=== PATIENT | female | born 1975 | race Caucasian/White ===

== ENCOUNTER → 2020-03-06 17:56 | Outpatient (CLI) | payer MEDICARE, MEDICAID, SELFPAY ==
--- NOTE | ~2020-03-06 | MM_ITS ---
EXAMINATION: MM screening helio BI w ivy HISTORY: Screening mammogram TECHNIQUE: Craniocaudal and mediolateral oblique 3-D tomosynthesis images were obtained and synthetic 2-D images were generated. CAD analysis was submitted and interpreted. COMPARISON: No prior mammogram is available for comparison at this institution. BREAST PARENCHYMAL COMPOSITION: There are scattered areas of fibroglandular density. FINDINGS: There is a 7 mm circumscribed mass in the upper central right breast (4 cm deep to the nipp le. Diagnostic right mammogram and right breast ultrasound examination are recommended. There is no e vidence of suspicious mass, calcification, or architectural distortion to suggest malignancy in eithe r breast. There has been no suspicious interval change. IMPRESSION: 1. 7 mm mass in upper central right breast 2. Diagnostic right mammogram and right breast ultrasound examination are recommended. BI-RADS Category 0: Incomplete: Needs additional imaging evaluation. Reviewed, dictated and finalized at location A. IMPRESSION: 1. 7 mm mass in upper central right breast 2. Diagnostic right mammogram and right breast ultrasound examination are recom mended. BI-RADS Category 0: Incomplete: Needs additional imaging evaluation.
== END ==
PROVIDERS: PCP Internal Medicine; Visit Provider Internal Medicine
DX: Z12.31 Encounter for screening mammogram for malignant neoplasm of breast (principal); N63.12 Unspecified lump in the right breast, upper inner quadrant
CPT/HCPCS: 77063; 77067

== ENCOUNTER → 2020-04-09 08:13 | Outpatient (CLI) | payer MEDICARE, MEDICAID, SELFPAY ==
--- NOTE | ~2020-04-09 | MMUS_ITS ---
EXAMINATION: MM diagnostic helio RT w ivy, US breast RT limited HISTORY: Possible right breast mass on screening mammogram TECHNIQUE: Additional 3-D tomosynthesis images of the right breast were performed and synthetic 2-D i mages were generated. CAD analysis was submitted and interpreted. High resolution limited right breas t ultrasound was performed. COMPARISON: 03/06/2020, 11/21/2017 FINDINGS: MAMMOGRAPHIC FINDINGS: There is an approximately 7 mm oval, equal density, obscured mass in the middle third of the central, slightly upper breast at the 12:00 location 3.5 cm from the nipple. No associated calcification or a rchitectural distortion are identified. ULTRASOUND: There is an 8 mm x 5 mm oval, hypoechoic, parallel mass with slightly indistinct margins at the 12:00 location 3 cm from the nipple. No definite internal vascularity or posterior features are identified . IMPRESSION: 1. Suspicious right breast mass. 2. Ultrasound-guided biopsy is recommended. BI-RADS category 4, suspicious findings. Reviewed, dictated and finalized at location A. 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 Suspicious right breast mass. 2. Ultrasound-guided biopsy is recommended. BI-RADS category 4, suspicious findings.
== END ==
PROVIDERS: PCP Internal Medicine; Visit Provider Internal Medicine
DX: R92.8 Other abnormal and inconclusive findings on diagnostic imaging of breast (principal)
CPT/HCPCS: 76642; 77061; 77065; G0279

== ENCOUNTER 2020-07-03 09:28 | Outpatient (CLI) | payer MEDICARE, MEDICAID, SELFPAY ==
--- NOTE | ~2020-07-03 | MMUS_ITS ---
EXAMINATION: US breast biopsy RT w image, MM post biopsy invasive RT DATE: 07/03/2020 11:04 INDICATION: Indeterminate right breast mass. Ultrasound-guided core biopsy is requested to evaluate for malignancy. TECHNIQUE AND FINDINGS: The risks and potential benefits of the procedure were discussed with the patient including bleeding and infection. Patient identity was confirmed with her wristband. The skin of the right breast was pr epared and draped in usual sterile fashion. 1% lidocaine was used for superficial anesthesia. 1% lido tommie with epinephrine was used for deep anesthesia. A vacuum-assisted biopsy gun needle was advanced through to the outer edge of the region of interest from a lateral approach utilizing sonographic guidance. A total of three tissue core samples were obt ained through the lesion. A tissue marker clip was then placed at the biopsy site. Hemostasis was ach ieved. A sterile bandage was applied. The patient tolerated procedure well and there was no evidence of immediate complication. The patient was given verbal instructions to return to the Emergency Department in the event of severe breast pa in or rapid breast enlargement. A two view right breast mammogram was obtained to document tissue mar ker clip placement. IMPRESSION: 1. Successful ultrasound-guided vacuum-assisted biopsy of right breast mass with tissue marker placem ent. Reviewed, dictated and finalized at location A. 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 Successful ultrasound-guided vacuum-assisted biopsy of right breast mass wit h tissue marker placement.
== END 2020-07-03 09:29 | disposition home or self-care (01) ==
PROVIDERS: Family Provider Internal Medicine; PCP Internal Medicine; Visit Provider Internal Medicine
DX: R92.8 Other abnormal and inconclusive findings on diagnostic imaging of breast (principal); D49.3 Neoplasm of unspecified behavior of breast
CPT/HCPCS: 19083; 88305

== ENCOUNTER 2021-09-14 12:46 | Outpatient (CLI) | payer OTHER, SELFPAY ==
--- NOTE | ~2021-09-14 | MR_ITS ---
EXAMINATION: MR lumbar spine wo con DATE: 09/14/2021 13:32 INDICATION: Low back pain. TECHNIQUE: Magnetic resonance imaging (MRI) of the lumbar spine was performed without intravenous con trast. Sequences included sagittal T2-weighted FSE, sagittal T2-weighted FS FSE, sagittal T1-weighted FSE, and axial T2-weighted FSE. COMPARISON: Lumbar spine MRI 07/02/2007 FINDINGS: There is 4 degrees dextrocurvature of lumbar spine. Vertebral body heights are normal. Ther e is moderately decreased disc height at L5-S1 with endplate remodeling. The distal spinal cord signa l intensity is normal. The conus medullaris is at L1-L2. The following disc levels are specifically d iscussed: L1-L2: The disc does not extend beyond the endplate margin. There is mild bilateral facet joint osteo arthritis. There is no neural foraminal stenosis. There is no central canal stenosis. L2-L3: The disc does not extend beyond the endplate margin. There is moderate bilateral facet joint o steoarthritis. There is no neural foraminal stenosis. There is no central canal stenosis. L3-L4: The disc does not extend beyond the endplate margin. There is moderate bilateral facet joint o steoarthritis. There is no neural foraminal stenosis. There is no central canal stenosis. L4-L5: The disc does not extend beyond the endplate margin. There is severe bilateral facet joint ost eoarthritis. There is mild left neural foraminal stenosis. There is no central canal stenosis. L5-S1: The disc is bulging and has an annular fissure. There is moderate bilateral facet joint osteoa rthritis. There is mild bilateral neural foraminal stenosis. There is mild central canal stenosis. IMPRESSION: 1. Moderate lower lumbar spondylosis, mildly worsened from 07/02/2007. Reviewed, dictated and finalized at location B.
== END 2021-09-14 12:47 | disposition home or self-care (01) ==
PROVIDERS: PCP Internal Medicine; Visit Provider Internal Medicine
DX: M47.817 Spondylosis without myelopathy or radiculopathy, lumbosacral region (principal); M48.07 Spinal stenosis, lumbosacral region
CPT/HCPCS: 72148

== ENCOUNTER 2021-10-12 23:52 | Emergency (ER) | payer OTHER, SELFPAY ==
--- NOTE | 2021-10-13 00:38 | PC.NURSE ---
RN attempted to pull pt back for triage but pt stated I am not going to sit here all night in pain. RN removed IV to L AC and pt ambulated out of the ER with daughter.
== END 2021-10-13 00:59 | disposition left against medical advice (07) ==
PROVIDERS: PCP Internal Medicine
DX: Z53.21 Procedure and treatment not carried out due to patient leaving prior to being seen by health care provider (principal)
CPT/HCPCS: 99199

== ENCOUNTER 2022-07-26 09:19 | Outpatient (CLI) | payer OTHER, SELFPAY ==
--- NOTE | 2022-07-26 10:45 | NEURO_ITS ---
Impression: Patient reports history of tingling in right lower extremity. # Normal nerve conduction study. # Needle/EMG exam not requested. # Clinical correlation recommended. Motor Nerve Conduction Lower Extremities Peroneal Nerve Conduction Velocity (m/sec) Terminal Latency (msec) Response Voltage(mV) Popliteal space-Ankle Ankle Extensor Dig Brevis Popliteal space Ankle Right 49-50 3.8 3-3 3 Left Tibial Nerve Conduction Velocity (m/sec) Terminal Latency (msec) Response Voltage(mV) Popliteal space-Ankle Ankle-Extensor Dig Brevis Popliteal space Ankle Right 50 4.1 5 8 Left F-waves Peroneal Nerve (ms) Tibial Nerve (ms) Right 47.6 46.7 Left Sensory Nerve Conduction Lower Extremities Sural Nerve Stimulation Terminal Latency (msec) Ankle Response Voltage (uV) Ankle Response Velocity (m/sec) Right 3.1 13 52 Left Superficial Peroneal Nerve Stimulation Terminal Latency (msec) Ankle Response Voltage (uV) Ankle Response Velocity (m/sec) Right 3.3 12 48 Left MTDD
== END 2022-07-26 09:20 | disposition home or self-care (01) ==
PROVIDERS: PCP Internal Medicine; Visit Provider Internal Medicine
DX: R20.2 Paresthesia of skin (principal)
CPT/HCPCS: 95908

== ENCOUNTER 2022-11-16 13:13 | Outpatient (CLI) | payer OTHER, SELFPAY ==
--- NOTE | 2022-11-16 13:26 | ECG_ITS ---
Measurements Intervals [place] Rate: 70 P: 56 RI: 148 QRS: 51 QRSD: 87 T: 35 QT: 370 QTc: 400 Interpretive Statements SINUS RHYTHM NO PREVIOUS ECG AVAILABLE FOR COMPARISON Electronically Signed On 11-16-2022 19:55:40 CDT by Julissa Grant M.D.
[2022-11-16 13:47] LABS: Basophils Percent Auto 0.6 % (0.2-1.2); Eosinophils Absolute Auto 0.1 K/mm3 (0-0.3); Hematocrit 43.7 % (37.0-47.0); Hemoglobin 14.3 g/dL (12.0-15.0); Immature Granulocyte Absolute 0.01 K/mm3 (0.00-0.031); Immature Granulocyte Percent A 0.1 % (0-0.5); Lymphocytes Percent Auto 32.2 % (18.3-44.2); Mean Corpuscular HGB Conc 32.7 g/dl (32-36); Mean Corpuscular Hemoglobin 29.2 pg (26-34); Mean Corpuscular Volume 89.4 fl (80-100); Mean Platelet Volume 9.9 fl (7.4-10.4); Monocytes Absolute Auto 0.5 K/mm3 (0.1-0.6); Monocytes Percent Auto 7.2 % (2.6-8.5); Neutrophils Percent Auto 57.9 % (45.5-73.1); Platelet Count Result 270 k/mm3 (150-375); Red Blood Count 4.89 M/mm3 (4.2-5.4); Red Cell Distribution Width 13.8 % (11.5-14.5); White Blood Count 6.8 K/mm3 (4.5-10.0)
== END 2022-11-16 13:14 | disposition home or self-care (01) ==
LOC: ANHSURGERY 13:18
PROVIDERS: PCP Internal Medicine; Visit Provider Obstetrics & Gynecology
DX: N85.2 Hypertrophy of uterus (principal); F17.210 Nicotine dependence, cigarettes, uncomplicated; Z01.818 Encounter for other preprocedural examination
CPT/HCPCS: 36415; 85025; 86850; 86900; 86901; 93005

== ENCOUNTER 2022-11-18 00:13 | Day surgery (SDC) | payer OTHER, SELFPAY ==
[2022-11-14 14:13] VITALS: BMI 36.6
--- NOTE | 2022-11-14 14:22 | SUR.PREOP ---
Report to the Outpatient Waiting Room, entrance under the green pavilion located off [facility], at time 0730 on date 11/18/22. Planned Procedure Time: 0930. Time changes happen often and if your time is changed the preop area will call you the afternoon before. - You and your visitor will be asked to self-screen and do not enter if you have any COVID symptoms. - A mask is optional within the hospital at this time. Patients may have clear liquids (water, carbonated beverages, clear teas, apple juice) until 3 hours prior to surgery with a maximum of 20 ounces. - No food from midnight until time of surgery BEFORE 0630 AM - Infants may have breast milk until 4 hours before surgery, infant formula 6 hours prior to surgery. - Children will be allowed to drink immediately following surgery. If applicable, please bring a bottle or sippy cup to assist with drinking. Juice, water, soda, and popsicles are readily available. For infants on formula, please bring formula the day of surgery. Pacifiers are allowed. Take the following medications with a SIP of water the morning of surgery: __SYNTHROID___ DO NOT STOP ANY OF YOUR OTHER PRESCRIPTION MEDICATIONS PRIOR TO SURGERY ?EXCEPT THE FOLLOWING Medications to discontinue per physician MULTIVITAMIN 3 DAYS BEFORE SURGERY Date to take last dose Please no make-up, nail yakut, hairspray, perfume, deodorant, or body powder the day of surgery. No jewelry (including any body piercings) or valuables the day of surgery, leave them at home. Please take a shower or bath the night before, or the morning of, surgery with an antibacterial soap. Wear comfortable, loose fitting clothing. Children are encouraged to wear pajamas. - Jewelry must be removed prior to entering the operating room. Rings and piercings that are not removed may be cut off. - The hospital will not accept responsibility for valuables. - Please leave all valuables, including medications, at home the day of surgery. If you are going home after surgery, a licensed independent driver must drive you home. - NO public transportation without another adult if you receive anesthesia. - We recommend that an adult stay with you for 24 hours following discharge. - We also recommend that you do not drive, make important decision, drink alcoholic beverages, or take any drugs that were not prescribed by your health care provider for at least 24 hours after your discharge time. For Pediatric surgeries, we recommend two adults accompany the child home. Follow any additional instructions given to you from your surgeon. If you or anyone in your household have experienced Covid symptoms in the past week, please notify your surgeon or the nurse liaison at the phone number below for possible testing. Telephone instructions given to PATIENT and asked if any additional questions and then verbalized understanding. Patient advised to call surgeon office or pre surgery nurse liaison [phone] if any additional questions.
--- NOTE | 2022-11-15 07:33 | PM.IMHP ---
H&P: HPI History of Present Illness Date/Time: 11/15/22 07:33 Chief Complaint: Fibroid uterus Narrative: This is a [age]-year-old multiparous female admitted for robotic hysterectomy bilateral salpingectomy secondary to markedly enlarged fibroid uterus. Her complaints are pain bleeding and discomfort. Risks and benefits reviewed in full details. She signed the [facility] acknowledgement of receipt of hysterectomy information on 10/03/2022. She had all questions answered and asked to proceed [facility] Social History Social History Smoking packs per day: 1 Smoking cigarettes per day: 20.0 Years smoked: 30 Smoking pack-years: 30.00 Smoking status: Current every day smoker Tobacco type: cigarettes Alcohol use details: OCCASIONAL DRINK Substance use: never Substance use type: does not use Living arrangements: with family Spiritual care concerns: No Meds Home Medications and Allergies Home Medications Medication Instructions Recorded Confirmed Type levothyroxine 150 mcg tablet 150 mcg PO DAILY 11/14/22 11/14/22 History multivitamin 1 tablet PO DAILY 11/14/22 11/14/22 History Allergies Allergy/AdvReac Type Severity Reaction Status Date / Time morphine AdvReac Mild Dizziness Verified 11/14/22 14:29 Exam Const: General: cooperative, healthy appearing, comfortable and overweight Orientation/consciousness: oriented to person, oriented to place and oriented to time HENMT: Head: normal to inspection Resp: Effort & Inspection: normal respiratory effort Cardio: Rate: regular rate Rhythm: regular rhythm Heart sounds: S1 normal heart sound present and S2 normal heart sound present GI: Inspection: normal to inspection Auscultation: normal bowel sounds : External Female Exam: normal external appearance Speculum Exam - Vagina: normal appearance of the vagina Speculum Exam - Cervix: normal appearance of the cervix Bimanual exam- vagina & uterus: enlarged Bimanual Exam- Adnexa, other: normal adnexae Assessment and Plan Assessment and plan (1) Uterine fibroid: Code(s): D25.9 - Leiomyoma of uterus, unspecified Status: Acute Plan Robotic total vaginal hysterectomy and bilateral salpingectomy
[2022-11-18] VITALS (11 sets, daily range): BP systolic 119–143; BP diastolic 70–90; PULSE 43–66; RESP 10–20; TEMP 36.1–37.1; O2SAT 94–100
--- NOTE | 2022-11-18 06:21 | WPDHPUPDATE1 ---
History and Physical Update Update Date/Time: 11/18/22 06:21 History and Physical has been reviewed, including an updated exam of the patient. There are NO changes in the patient's condition. Risks, benefits, and alternatives have been discussed and questions answered. Patient agrees to proceed with procedure.
[2022-11-18] MEDS: ACETAMINOPHEN 500 MG TABLET 1000 MG PO (07:44)
--- NOTE | 2022-11-18 08:00 | P.PNAN_ITS ---
Anes - Initial Pre Proc Eval Procedure: Operation Date: 11/18/22 09:30 Proposed Procedures p Robotic Assisted Total Vaginal Hysterectomy with Bilateral Salpingectomy - Stewart Davis MD Date/Time: 11/18/22 08:00 Surgeon: Stewart Davis MD Pre Op Diagnosis: Enlarged Uterus, fibroids and pelvic pain Patient Data Age: 47 Gender: F Height: 1.57 m Weight: 90.8 kg Allergies Allergy/AdvReac Type Severity Reaction Status Date / Time morphine AdvReac Mild Dizziness Verified 11/18/22 07:38 Home Medications Medication Instructions Recorded Confirmed Type levothyroxine 150 mcg tablet 150 mcg PO DAILY 11/14/22 11/18/22 History multivitamin 1 tablet PO DAILY 11/14/22 11/18/22 History hydrocodone 5 mg-acetaminophen 325 1 tablet PO Q4H PRN pain #20 tabs 11/18/22 Rx mg tablet Patient hx anesthesia problems: post op nausea/vomiting Family hx anesthesia problems: none Results Review: All pre-operative results and documents have been reviewed as part of the pre- operative evaluation. [facility] Past Medical History Medical History (Updated 11/18/22 @ 08:01 by Faheem Montoya DO) Anxiety Fibroid Hypothyroidism AMRIK (obstructive sleep apnea) PONV (postoperative nausea and vomiting) Surgical History Surgical History (Updated 11/18/22 @ 08:01 by Faheem Montoya DO) Hx laparoscopic cholecystectomy Social History Social History Smoking packs per day: 1 Smoking cigarettes per day: 20.0 Years smoked: 30 Smoking pack-years: 30.00 Smoking status: Current every day smoker Tobacco type: cigarettes Alcohol use details: OCCASIONAL DRINK Substance use: never Substance use type: does not use Living arrangements: with family Spiritual care concerns: No Anes - Eval Final PreProcedure Day of Procedure 11/18/22 08:00 Patient weight: obese Heart: regular rate and rhythm Lungs: clear to auscultation Airway: Mallampati scale class III Neurological: alert and oriented Last oral intake: >/= 8 hours ASA classification: III Emergent: no Anesthetic plan: proceed Anesthesia type and monitoring: general ETT and standard monitoring Results Review: All pre-operative results and documents have been reviewed as part of the pre- operative evaluation. Informed Consent: The patient's anesthetic plan and its attendant risks and benefits were discussed with the patient/family/POA. Questions were solicited and answers provided to the satisfaction of the patient/family/POA.
[2022-11-18] MEDS: KETOROLAC 15 MG/ML VIAL (*BKC) IV PUSH (08:27)
[2022-11-18] MEDS: SCOPOLAMINE 1.5 MG PATCH TRANSDERM (08:28)
[2022-11-18] MEDS: LACTATED RINGERS 1,000 ML 30 ML IV CONT ×2 (08:28→10:56)
[2022-11-18] MEDS: MIDAZOLAM HCL (*CRX) 2 MG/2 ML VIAL IV PUSH (08:34)
[2022-11-18] MEDS: ceFAZolin 2 GM/D5W 50 ML 2 GM/50 ML BAG IVPB (09:35)
--- NOTE | 2022-11-18 10:44 | W.PM.PROC2 ---
Procedure Note - Detailed Date of Procedure 11/18/22 Pre-op Diagnosis Enlarged Uterus, fibroids and pelvic pain Post-op Diagnosis Same Procedure Performed Robotic total vaginal hysterectomy and bilateral salpingectomy Surgeon Stewart Davis MD Anesthesia General Indications say 47-year-old female with symptomatic uterine fibroids Findings markedly enlarged fibroid uterus. Normal-appearing ovaries. Tubes with Filshie clips bilaterally. Description of Procedure Patient was prepped draped in the normal sterile fashion placed in the dorsal lithotomy position. Under excellent general trach anesthesia weighted speculum placed in posterior fornix vagina. Anterior lip of the cervix grasped with a single-tooth tenaculum. Uterus sounded to 9cm. Serial dilatation with fragmented dilators performed, this was followed passing the 8. MATT and the 3. 0.5 cold cup. The single-tooth tenaculum was removed and the weighted speculum were removed. A 16 [place] catheter was placed in the bladder draining clear urine. Gloves were changed. Supraumbilical incision made. Veress needle passed in the abdomen. Abdomen filled with CO2 gas to 15mm Hg. The 8mm trocar advanced under direct visualization assuring no injury. Patient placed in 20degree Trendelenburg. Right and left lateral quadrant incisions made 8mm trocars advanced under direct visualization assuring no injury. Right upper quadrant incision made the 8mm trocar advanced under direct visualization assuring no injury. The robot was docked. Attention was turned to the console. The left round ligament was grasped, burned, cut. Anteriorly bladder flap was formed by sharply dissecting the peritoneum and reflecting the bladder caudally away from the cervix and uterus to the opposite round ligament which was clamped, burned, cut. Next a small Fil[place] clip that was extra was sitting on the peritoneum of the uterus and this was removed removed through the right upper quadrant incision the fallopian tubes were then sharply dissected away from the peritoneal edge of the uterus and left attached at the a 30 uterine origin. Next conserving the left ovary the utero-ovarian ligament was clamped, burned, cut bringing this to the previously cut round ligament. In like fashion conserving the right all ovary, the utero-ovarian ligament was clamped, burned, cut and brought to level of previous cut round ligament. The cardinal broad ligaments on the left were then serially skeletonized clamping burning cutting and bringing this down lateral edge until the uterine vessels could be seen on the left these were thick and tortuous in individually clamped, burned, cut. In like fashion the cardinal broad ligaments on the right were serially skeletonized clamping burning cutting and hugging the cervix uterus until the uterine vessels could be seen on the right. These were clamped individually burned and cut. Blanching of the uterus was noted a colpotomy incision was then made. The uterus cervix and tubes removed through the vagina. The vagina was then closed with continuous running 0V lock from lateral edge to lateral edge back to the midline. Irrigation undertaken until clear and the raw area sparkle sprinkled with [place] term. Blood loss was estimated 25cc. The robot was undocked. The gas removed from the abdomen and the trocars removed. The incisions closed with 4-0 Monocryl and glue. The patient was awakened and went to recovery in satisfactory condition. All sponge, needle, instrument counts were correct. There were no immediate complications noted Estimated Blood Loss 25 Drains No Packing No Pathology Yes Complications No immediate complications Condition Stable Disposition PACU
[2022-11-18] MEDS: fentaNYL CITRATE INJ (*CRX) 100 MCG/2 ML VIAL 25 MCG IV PUSH ×4 (11:01→11:17)
[2022-11-18] MEDS: DEXTROSE 5%/LACTATED RINGERS 1,000 ML 125 ML IV CONT (13:15)
[2022-11-18] MEDS: KETOROLAC 30 MG/ML VIAL (*BKC) IV PUSH ×2 (14:50→20:16)
[2022-11-18] MEDS: ONDANSETRON INJ 4 MG/2 ML VIAL IV PUSH ×2 (14:51→19:54)
--- NOTE | 2022-11-18 15:26 | PM.DS ---
DS: Admitting Diagnosis Discharge Date 11/19/22 Admitting Diagnosis symptomatic uterine fibroids DS: Discharge Diagnosis Discharge Diagnosis (1) Uterine fibroid: Code(s): D25.9 - Leiomyoma of uterus, unspecified Status: Acute DS: Summary Hospital Course Reason for hospitalization: patient was admitted for robotic total vaginectomy and bilateral salpingectomy Hospital Course: patient underwent an unremarkable robotic total vaginal rectum a bilateral salpingectomy on 11/18/2022. Her hospital course was unremarkable. She remained afebrile. She was up, voiding without difficulty and ambulating, eating regular diet, and generally without complaints. Time Spent with Patient Time attestation: Total time spent providing and/or coordinating discharge services: Exam Const: General: cooperative, healthy appearing and comfortable Nutritional Appearance: average body habitus Orientation/consciousness: oriented to person, oriented to place and oriented to time HENMT: Head: normal to inspection Resp: Effort & Inspection: normal respiratory effort Cardio: Rate: regular rate Rhythm: regular rhythm Heart sounds: S1 normal heart sound present and S2 normal heart sound present GI: Inspection: normal to inspection and incision ( Wounds are clean dry and intact) Auscultation: normal bowel sounds DS: Data Data Completed and Pending Pending studies at discharge: Pending at discharge 11/18/22 10:12 Surgical [PTH] Routine Discharge Plan Discharge Patient Disposition: Home, Self-Care Discharge Instructions: Nothing in the vagina for 6 weeks. Call or return if temperature above 100.4? F, increased abdominal pain, increased vaginal bleeding or any new problems. Patient Instructions: Laparoscopic Hysterectomy (DC), Pain Management After Surgery (DC) Stand Alone Forms: General Discharge Instructions Follow-up/Referrals: Stewart Bernabe MD [Physician] - 2 Weeks Discharge Medications: New hydrocodone-acetaminophen 5-325 mg tablet 1 tablet PO Q4H PRN (Reason: pain) Qty: 20 0RF Continued levothyroxine 150 mcg tablet 150 mcg PO DAILY multivitamin Tablet 1 tablet PO DAILY
[2022-11-18] MEDS: HYDROcodone/acetaminophen (*CRX) 5-325 MG TABLET 1 TAB PO (16:51)
[2022-11-18] MEDS: DOCUSATE SODIUM 100 MG CAPSULE PO (16:52)
[2022-11-19 00:33] VITALS: BP 120/66; PULSE 47; RESP 16; TEMP 37.1; O2SAT 99
[2022-11-19] MEDS: HYDROcodone/acetaminophen (*CRX) 5-325 MG TABLET 1 TAB PO ×3 (00:52→11:05)
[2022-11-19 04:44] VITALS: BP 109/67; PULSE 47; PULSE 48; RESP 14; RESP 16; TEMP 37.1; O2SAT 94
[2022-11-19 06:00] LABS: Basophils Percent Auto 0.1 % (0.2-1.2); Hematocrit 41.5 % (37.0-47.0); Hemoglobin 13.4 g/dL (12.0-15.0); Immature Granulocyte Absolute 0.06 K/mm3 (0.00-0.031); Immature Granulocyte Percent A 0.4 % (0-0.5); Lymphocytes Absolute Auto 1.91 K/mm3 (0.9-3.2); Lymphocytes Percent Auto 13.7 % (18.3-44.2); Mean Corpuscular HGB Conc 32.3 g/dl (32-36); Mean Corpuscular Hemoglobin 28.8 pg (26-34); Mean Corpuscular Volume 89.1 fl (80-100); Mean Platelet Volume 10.5 fl (7.4-10.4); Monocytes Absolute Auto 0.9 K/mm3 (0.1-0.6); Monocytes Percent Auto 6.7 % (2.6-8.5); Neutrophils Absolute Auto 11.1 K/mm3 (1.3-6.7); Neutrophils Percent Auto 79.1 % (45.5-73.1); Platelet Count Result 237 k/mm3 (150-375); Red Blood Count 4.66 M/mm3 (4.2-5.4); Red Cell Distribution Width 13.7 % (11.5-14.5)
--- NOTE | 2022-11-19 07:30 | PC.NURSE ---
PT introductions made and plan of care discussed per post op surgery, pain management, daily care activities and pending discharge to home. PT sole recipient of such instructions and no barriers to learning identified. PT received such instructions per one to one discussion, and demonstrations this shift. PT verbalized understanding of such care.
[2022-11-19] MEDS: IBUPROFEN 600 MG TABLET PO (08:21)
[2022-11-19] MEDS: SIMETHICONE 80 MG TAB.CHEW PO (08:21)
[2022-11-19] MEDS: DOCUSATE SODIUM 100 MG CAPSULE PO (08:21)
[2022-11-19] MEDS: ENOXAPARIN 40 MG/0.4 ML SYRINGE SUB-Q (08:22)
[2022-11-19 08:26] VITALS: BP 125/73; PULSE 47; PULSE 61; RESP 18; TEMP 37.2; O2SAT 95
--- NOTE | 2022-11-19 08:40 | PM.GYNPNOP ---
CENTRAL SUPPLY ASSISTANT - A/P Assessment and plan (1) Uterine fibroid: Code(s): D25.9 - Leiomyoma of uterus, unspecified Status: Acute Assessment and Plan: A: POD#1, doing well. P: Home to f/u 2 weeks. Postoperative Procedures: Procedures Operation Date: 11/18/22 09:30 Actual Procedure Side Surgeon p Robotic Assisted Total Vaginal Hysterectomy with Bilateral Salpingectomy Bilateral Stewart Davis MD Postoperative day: 1 Postoperative status: doing well Postoperative plan: routine post-op care Time Spent With Patient Time with patient: less than 15 minutes CENTRAL SUPPLY ASSISTANT- PN:Subj Post-Op Subjective Date/time seen: 11/19/22 08:40 Review of Systems Review of Systems: All systems reviewed & are unremarkable except as noted in HPI and below Exam Const: Orientation/consciousness: patient oriented x3 Other: Well-developed, well-nourished female in no acute distress. Neck: Thyroid: thyroid normal Lymphatic: no lymphadenopathy noted (in neck, axilla or inguinal nodes) Resp: Effort & Inspection: normal respiratory effort Auscultation: clear to auscultation bilaterally Cardio: Rate: regular rate Rhythm: regular rhythm Heart sounds: S1 normal heart sound present and S2 normal heart sound present GI: Other: ABD: Soft, nontender, nondistended. No guarding or rebound tenderness. No hepatosplenomegaly. : General: Yes no CVA tenderness Other: External genitalia: normal female hair distribution, without lesion. Urethral meatus: no lesion, non prolapsed. Bladder: no mass, nontender Vagina: well-estrogenized, without lesion or discharge. No cystocele or rectocele. Cervix: no lesion or discharge. Uterus: small, anteverted, freely mobile, nontender Adnexa: no mass or tenderness. Anus/perineum: no lesions, nontender Back/Spine/Pelvis: Back: no CVA tenderness Skin: General skin exam: normal color and no rashes or lesions noted Neuro: General: patient oriented x3 Extrem: Other: Extremities: nontender with no edema Psych: Mental Status: mental status grossly normal Affect: normal affect CENTRAL SUPPLY ASSISTANT - PN: Obj Data Vital Signs Vital Signs: Vital Signs - 24 hr 11/18/22 10:56 11/18/22 11:10 11/18/22 11:25 Temperature 36.8 C Pulse Rate 53 L 47 L 53 L Respiratory Rate 10 L 12 14 Blood Pressure 140/85 138/85 125/78 Pulse Oximetry 100 100 100 Oxygen Delivery Simple Face Mask Simple Face Mask Simple Face Mask Oxygen Flow Rate 6 6 6 11/18/22 11:40 11/18/22 11:55 11/18/22 12:10 Temperature Pulse Rate 43 L 47 L 45 L Respiratory Rate 14 14 14 Blood Pressure 129/70 121/82 119/80 Pulse Oximetry 100 100 100 Oxygen Delivery Nasal Cannula Nasal Cannula Nasal Cannula Oxygen Flow Rate 2 2 2 11/18/22 12:25 11/18/22 11:45 11/18/22 16:40 Temperature 36.7 C 36.4 C 36.1 C L Pulse Rate 45 L 52 L 51 L Respiratory Rate 14 20 14 Blood Pressure 125/79 143/90 H 138/84 Pulse Oximetry 98 94 100 Oxygen Delivery Nasal Cannula Oxygen Flow Rate 2 11/19/22 00:33 11/18/22 20:20 11/19/22 00:33 Temperature 36.7 C 37.1 C Pulse Rate 47 L 63 47 L Respiratory Rate 16 20 16 Blood Pressure 120/75 120/66 Pulse Oximetry 99 95 99 Oxygen Delivery Nasal Cannula Oxygen Flow Rate 2 11/19/22 04:44 11/19/22 04:44 Temperature 37.1 C Pulse Rate 48 L 47 L Respiratory Rate 14 16 Blood Pressure 109/67 Pulse Oximetry 94 94 Oxygen Delivery Room Air Oxygen Flow Rate Intake/Output Intake/Output: Intake & Output 11/16/22 11/17/22 11/18/22 11/19/22 23:59 23:59 23:59 23:59 Intake Total 1400 440 Output Total 460 1400 Balance 940 -960 Meds/Results Medications: Active Medications Generic Name Dose Route Start Last Admin Trade Name Freq PRN Reason Stop Dose Admin Hydrocodone Bitart/Acetaminophen 1 tab 11/18/22 12:35 Hydrocodone/Acetaminophen (*Crx) 10-325 Mg Tablet PO Q3H PRN Pain Rated 6 or Greater Hydrocodone Bitart/Acetaminophen 1 tab
--- NOTE | 2022-11-19 10:01 | WPDANESPN ---
Anes - Prog Note Post-Op Date/Time: 11/19/22 10:01 Cardiovascular status: normal Respiratory status: normal Airway patency: baseline Mental status: baseline Post-Op hydration status: normal Vital Signs: Last Vital Signs Temp 98.8 F 11/19/22 04:44 Pulse 47 L 11/19/22 04:44 Resp 16 11/19/22 04:44 BP 109/67 11/19/22 04:44 Pulse Ox 94 11/19/22 04:44 O2 Del Method Room Air 11/19/22 04:44 O2 Flow Rate 2 11/19/22 00:33 Pain Score (VAS): 4 I/O: Intake & Output 11/18/22 11/19/22 11/19/22 23:59 07:59 15:59 Intake Total 350 440 Output Total 300 1400 Balance 50 -960 Laboratory Tests 11/19/22 05:09 11/19/22 05:09 WBC 14.0 H RBC 4.66 Hgb 13.4 Hct 41.5 MCV 89.1 MCH 28.8 MCHC 32.3 RDW 13.7 Plt Count 237 MPV 10.5 H Immature Gran % (Auto) 0.4 Neut % (Auto) 79.1 H Lymph % (Auto) 13.7 L [place] % (Auto) 6.7 Eos % (Auto) 0.0 Baso % (Auto) 0.1 L Lymph # (Auto) 1.91 [place] # (Auto) 0.9 H Eos # (Auto) 0.0 Baso # (Auto) 0.0 Abs Immat Gran (auto) 0.06 H Absolute Neuts (auto) 11.1 H Absolute Nucleated RBC 0.0 Nucleated RBC % 0.0 Post-procedural complaints: nausea Patient Feedback: Patient satisfied with anesthetic care.
--- NOTE | 2022-11-19 10:45 | PC.NURSE ---
PT received discharge instructions per protocol and verbalized understanding of such care.
--- NOTE | 2022-11-19 11:21 | PC.NURSE ---
PT discharged to home via wheelchair accompanied by daughter and taken to waiting car. follow up appts confirmed
== END 2022-11-19 11:21 | disposition home or self-care (01) ==
LOC: ANHSURGERY 07:25 → ANHOB2 12:46
PROVIDERS: PCP Internal Medicine; Visit Provider Obstetrics & Gynecology
PROC: (CPT 58552; principal; 2022-11-18 09:30)
DX: D25.2 Subserosal leiomyoma of uterus (principal); R10.2 Pelvic and perineal pain; N80.03 Adenomyosis of the uterus; Z98.51 Tubal ligation status; E03.9 Hypothyroidism, unspecified; G47.33 Obstructive sleep apnea (adult) (pediatric); F17.210 Nicotine dependence, cigarettes, uncomplicated; E66.9 Obesity, unspecified; Z68.36 Body mass index [BMI] 36.0-36.9, adult
CPT/HCPCS: 58552; S2900; 36415; 85025; 88307; 99199; A9270; J0690; J1100; J1170; J1650; J1885; J2250; J2405; J2704; J3010; J7030; J7120; J7121

== ENCOUNTER 2024-04-01 18:02 | Emergency (ER) | payer OTHER, SELFPAY ==
[2024-04-01 18:16] VITALS: BP 144/88; PULSE 78; RESP 18; TEMP 36.4; O2SAT 98
--- NOTE | 2024-04-01 18:37 | ED.EAR ---
HPI - Ear Problem General Chief complaint: Ear Stated complaint: ear clogging Time Seen by Provider: 04/01/24 18:37 Source: patient Mode of arrival: ambulatory Limitations: no limitations History of Present Illness HPI Narrative: 48-year-old female presents with complaint of left ear pain. Has been throbbing for the past week. Pain getting progressively worse and now has decreased hearing to left ear. Afebrile. All systems reviewed and negative except as noted above. Related Data Home Medications Medication Instructions Recorded Confirmed levothyroxine 150 mcg tablet 150 mcg PO DAILY 11/14/22 04/01/24 Allergies Allergy/AdvReac Type Severity Reaction Status Date / Time morphine AdvReac Mild Dizziness Verified 04/01/24 18:36 Review of Systems Review of Systems: CONSTITUTIONAL: Denies fever, chills, or sweats. EYES: Denies visual changes, redness, or discharge. ENT: Denies rhinorrhea, congestion, sore throat . Reports left ear pain with decreased hearing. CARDIOVASCULAR: Denies chest pain, palpitations, or edema. RESPIRATORY: Denies cough or dyspnea. GASTROINTESTINAL: Denies abdominal pain, nausea, vomiting, or diarrhea. GENITOURINARY: Denies dysuria or hematuria. SKIN: Denies rash or itching. MUSCULOSKELETAL: Denies back pain, joint pain, or myalgia. NEUROLOGIC: Denies headache, numbness, or weakness. PSYCHIATRIC: Denies anxiety or depression. All other systems reviewed are negative, except as documented in HPI. [facility] Past Medical History Medical History (Updated 04/01/24 @ 18:46 by Madalyn Bah NP) Anxiety Fibroid Hypothyroidism AMRIK (obstructive sleep apnea) PONV (postoperative nausea and vomiting) Surgical History Surgical History (Updated 11/18/22 @ 08:01 by Faheem Montoya DO) Hx laparoscopic cholecystectomy Social History Social History Smoking packs per day: 1 Smoking cigarettes per day: 20.0 Years smoked: 30 Smoking pack-years: 30.00 Smoking status: Current every day smoker Tobacco type: cigarettes Alcohol use details: OCCASIONAL DRINK Substance use: never Substance use type: does not use Living arrangements: with family Spiritual care concerns: No Comments At time of signature, agree with nursing past medical, surgical, social and family history. There is no relevant family history pertinent to the presenting complaint. Exam Narrative: GENERAL: This is a well-nourished, well-developed patient, in no apparent distress. HEAD: normocephalic, atraumatic. EYES: PERRL. Sclera clear/white. Vision is grossly intact. EARS: External ears normal, auditory canals clear and without drainage, right TM normal, left TM erythematous with fluid without perforation bilaterally. Hearing grossly intact. NOSE: External nose normal NECK: Neck supple, non-tender without lymphadenopathy, masses or thyromegaly. CARDIOVASCULAR: Regular rate and rhythm without murmurs, gallops, or rubs. RESPIRATORY: Clear to auscultation. Breath sounds equal bilaterally. No wheezes, rales, or rhonchi. SKIN: warm, Dry, intact with no suspicious lesions or rash, good texture and turgor. NEURO: awake, alert, and oriented to person, place and time. There were no obvious focal neurologic abnormalities. EXTREMITIES: No joint tenderness, effusion, or edema noted. Course Course Level of Care: Express Care Visit Vital Signs Vital signs: Vital Signs Temperature 36.4 C 04/01/24 18:16 Pulse Rate 78 04/01/24 18:16 Respiratory Rate 18 04/01/24 18:16 Blood Pressure 144/88 H 04/01/24 18:16 Pulse Oximetry 98 04/01/24 18:16 Oxygen Delivery Room Air 04/01/24 18:16 Temperature 36.4 C 04/01/24 18:16 Pulse Rate 78 04/01/24 18:16 Respiratory Rate 18 04/01/24 18:16 Blood Pressure 144/88 H 04/01/24 18:16 Pulse Oximetry 98 04/01/24 18:16 Oxygen Delivery Room Air 04/01/24 18:16 reviewed Medical Decision Making MDM Narrative Medical decision making narrative: Patient is aware of diagnosis, understands and agrees to treatment plan. Anticipatory guidance given. Patient agrees to follow-up as directed and is aware of reasons to seek care at the emergency department. Portions of this record may have been created with voice recognition software Vital Signs Vital Signs: Vital Signs Temperature 36.4 C 04/01/24 18:16 Pulse Rate 78 04/01/24 18:16 Respiratory Rate 18 04/01/24 18:16 Blood Pressure 144/88 H 04/01/24 18:16 Pulse Oximetry 98 04/01/24 18:16 Oxygen Delivery Room Air 04/01/24 18:16 Temperature 36.4 C 04/01/24 18:16 Pulse Rate 78 04/01/24 18:16 Respiratory Rate 18 04/01/24 18:16 Blood Pressure 144/88 H 04/01/24 18:16 Pulse Oximetry 98 04/01/24 18:16 Oxygen Delivery Room Air 04/01/24 18:16 Discharge Plan Discharge Clinical Impression: Acute serous otitis media of left ear Patient Disposition: Home, Self-Care Condition: Stable Instructions: Antibiotic Form, Fluid In The Ear (Serous Otitis Media) (ED) Additional Instructions: Take antibiotic as prescribed until gone. Take ibuprofen or Tylenol every 6-8 hours as needed for pain. Take a daily antihistamine such as Claritin or Zyrtec. Follow-up your doctor if pain is not improving. Prescriptions: New amoxicillin 875 mg tablet 875 mg PO Q12H 10 Days Qty: 20 0RF fluticasone propionate [Flonase Allergy Relief] 50 mcg/actuation spray,suspension 1 spray intranasal BID Qty: 16 0RF Rx Instructions: administer into each nostril No Action levothyroxine 150 mcg tablet 150 mcg PO DAILY Follow-up/Referrals: Yon,Gerald Payton MD [Primary Care Provider] - Time of Disposition: 18:44
== END 2024-04-01 18:50 | disposition home or self-care (01) ==
PROVIDERS: Emergency Provider Nurse Practitioner Family; PCP Internal Medicine
DX: H65.02 Acute serous otitis media, left ear (principal); F17.210 Nicotine dependence, cigarettes, uncomplicated; E03.9 Hypothyroidism, unspecified
CPT/HCPCS: 99213; G0463

== ENCOUNTER 2024-10-11 10:59 | Emergency (ER) | payer OTHER, SELFPAY ==
[2024-10-11 11:02] VITALS: BP 137/91; PULSE 73; RESP 16; TEMP 36.6; O2SAT 100
--- OUTSIDE RECORDS SUMMARY | 2024-10-11 11:03 | XMS_ITS | Clinical Summary ---
Author Organization [facility] Address [facility] [place] [address] Care Team Providers Care Binding Dyer Name Role Phone Gerald Marvin MD Primary Care Provider [phone] Allergies Active Allergy Reactions Criticality Noted Date Comments Morphine Vomiting 10/13/2021 Medications levothyroxine 150 MCG tablet Take 150 mcg by mouth every morning. 2 Active ondansetron 4 MG disintegrating tablet Take 1 tablet (4 mg total) by mouth every 8 (eight) hours as needed for Nausea. 20 tablet 2 Active Active Problems Problem Noted Date Diagnosed Date Abdominal pain 10/13/2021 Acute cholecystitis 10/13/2021 Social History Tobacco Use Types Packs/Day Years Used Date Smoking Tobacco: Never Smokeless Tobacco: Never Alcohol Use Standard Drinks/Week Comments Not Currently 0 (1 standard drink = 0.6 oz pur e alcohol) Comments No Sex and Gender Information Value Date Recorded Sex Assigned at Not on file Legal Sex Female 4:44 PM CDT Gender Identity Not on file Sexual Orientation Not on file Last Filed Vital Signs Vital Sign Reading Time Taken Comments Blood Pressure 108/58 10/14/2021 7:59 AM CDT Pulse 54 10/14/2021 7:59 AM CDT Temperature 36.3 C (97.3 F) 10/14/2021 7:59 AM CDT Respiratory Rate 16 10/14/2021 7:59 AM CDT Oxygen Saturation 96% 10/14/2021 7:59 AM CDT Inhaled Oxygen Concentration - - Weight 90.7 kg (200 lb) 10/13/2021 1:18 AM CDT Height 157.5 cm (5' 2 ) 10/13/2021 1:18 AM CDT Body Mass Index 36.58 10/13/2021 1:18 AM CDT Plan of Treatment Health Maintenance Due Date Last Done Comments Cervical Cancer Screening Pa p Smear (Age 30 to 64) Every 3 Years 1975 Colorectal Cancer Screening Colonoscopy (10 Years) 1975 Annual Physical 1978 Hepatitis C 1993 DTaP, Tdap and Td Vaccines ( 1 - Tdap) 1994 Hepatitis B Vaccines (1 of 3 - 19+ 3-dose series) 1994 Cervical Cancer Screening Pa p with HPV Testing (Age 30 to 64) Every 5 Years 2005 Cervical Cancer Screening wi th HPV 2005 Mammogram Screening 2015 COVID-19 Vaccine (2023-2 5 season) 2024 06/25/2021, 05/18/2021 Meningococcal B Vaccine Aged Out No l onger eligible based on patient's age to complete this topic Meningococcal Vaccine Aged Out No elmer torrie eligible based on patient's age to complete this topic Pneumococcal Vaccine: Pediatrics (0 to 5 Years) and At-Risk Patients (6 to 49 Years) Aged Out No longer eligible b ased on patient's age to complete this topic RSV Immunizations Under 20 Months Aged Out No longer eligible b ased on patient's age to complete this topic Goals Goal Patient Goal Type Associated Problems Recent Progress Patient-Stated? Author Safety - demonstrates understanding of home safety measures General No Rahel Muir, RN Insurance LAISHA Advance Directives * Full Code (Latest Code Status on File) Date Activated Date Inactivated Comments 10/13/2021 6:06 AM 10/14/2021 1:45 PM Care Teams Binding Dyer Relationship Specialty Start Date End Date Gerald Marvin MD PCP - General INTERNAL MEDICINE 05/29/21
--- OUTSIDE RECORDS SUMMARY | 2024-10-11 11:03 | XMS_ITS | Data Portability ---
Author Organization [place] [facility] [employer], Main Office Address [address] [place] [address] Care Team Providers Care Baseball Club Manager Name Role Phone RO ANDERSONINDER Primary Care Provider [phone] Assessment No assessment recorded. Plan of Treatment Reminders Order Date Submit Date Provider Last Modified By Organization Details Last Modified Time Details Appointments None recorded. Lab TSH, serum or plasma 2024 025 [email or web address] [facility], [address] [place], [address], 5 10:03:21 T4, free, serum 2024 025 [email or web address] [facility], [address] [place], [address], 5 10:03:21 lipid panel, serum 2024 025 [email or web address] [facility], [address] [place], [address], 5 10:03:21 CMP, serum or plasma 2024 025 [email or web address] [facility], [address] [place], [address], 5 10:03:[address] referral 2023 024 [email or web address] Fauzia Martinez MD (Dermatology) , [address], [place], [address], 4 12:11:46 Procedures None recorded. Surgeries None recorded. Imaging MAMMO, screening, bilateral 2024 025 [email or web address] [facility], [address], [address] [address], [place], [address], 14:48:49 Medication Orders prednisone 20 mg tablet 2023 024 [email or web address] [id number], [address] [facility], [place], [place], [id number], 08:21:37 Patient TargetsNo targets recorded. Patient Instructions Encounter Date Encounter Id Patient Instructions Last Modified By Organization Details Last Modified Time 04/16/2024 [id number] prescribed prednisone to be taken daily for 5 days for your left Eustachian tube dysfunction. She will have an audiogram and tympanogram completed. We will follow-up when results become available. If symptoms continue to persist after completion of medical management, contact the office to be seen for an evaluation for a possible ETBD with tube placement. Not available 04/16/2024 10:28:24 05/02/2024 [id number] the patient is n ot quite ready for Eustachian tube Balloon but is interested in a thyroid ultrasound and hormone levels. [email or web address] Not available 05/02/2024 12:25:21 06/05/2024 [id number] dementia rating scale-2* Not available 06/05/2024 16:58:37 alcohol misuse* Not available 06/05/2024 16:58:37 depression screening* Not available 06/05/2024 16:58:37 multi-dimensiona l health assessment questionnaire* [email or web address] Not available 06/06/2024 14:07:07 advance directiv es: care instructions Not available 06/05/2024 16:58:37 advance care planning: care instructions Not available 06/05/2024 16:58:37 [place] Advance Directives Not available 06/05/2024 16:58:37 Personalized a lt Plan and Screening Recommendations Advance Directives - Do you have one? No You have indicated that you are capable of preparing your advance care directive Advance Directives - Do we have your advance directive on file in your health record? No, please bring in a copy at your earliest convenience Primary Prevention/Interven tion (prevents or decreases the chance of common diseases from occurring) Smoking Risk: Smoker Refer to attached smoking cessation handouts Refer to attached handouts and prescription will be sent to pharmacy Continue to consider stopping smoking and call if we can assist you Alcohol Misuse Screening: Negative Weight: Appropriate Overwei ght Physical activity: Need more exercise/physical activity minimum of 10-20 minutes of activity that causes mild breathlessness/day Nutrition: Good Average Fall Risk (screened today): Low Vaccines Pneumococcal: Influenza: Ordered Recommended today Recommended today, but you have declined Chronic Disease Risks Stroke: Low Risk Intermediate Risk I have no recommendations Act myriam diagnosis, Continue current treatment plan Heart Attack: Low risk Intermediate Risk I have no recommendations Act myriam diagnosis, Continue current treatment plan Clogging of the Arteries: Low risk Intermediate Risk I have no recommendations Act myriam diagnosis, Continue current treatment plan Diabetes: Low Risk I have no recommendations Secondary Prevention/Interven tion (detects treatable diseases before they may cause symptoms, disability, or ) Breast Cancer Screening with mammogram: Your next mammogram: Ordered Recommended today Cervical/Uterine/Ov heaven Cancer Screening: Osteoporosis Screening: No screening necessary Date Screening Last Performed: Colon Cancer Screening: Colonoscopy Fecal Occult Blood Cologuard (DNA stool test) In: Ordered Recomme nded Date Screening Last Performed: Eye Disease Screening: No Eye exam necessary Dementia Risk: Low I have no recommendations Depression Screening: Negative [email or web address] Not available 06/05/2024 15:54:34 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 [facility] [address], [place], [address], 04/23/2024 18:28:17 Result Notes None recorded. Problems Name Problem SNOMED Code Status Onset Date Resolution Date Notes Provider Name and Address Organization Details Recorded Time Impacted cerumen of bilateral ears 99159561440 18717 Completed 202111/30/2021 Leanne Anderson MD [address] [facility], [address], [place], [address] , [place] [facility] 4 12:04:08 Acquired hypothyro idism 061939459 Active 2021 Not Available [facility] 3 14:48:09 Mammograp hy abnormal 349594560 Completed 201701/24/2018 Not Available [facility] 3 14:48:09 Postopera tive hypothyro idism 02063450 Completed 202111/30/2021 Not Available [facility] 3 14:48:09 Lesion of lip 177646757 Active 2021 Not Available [facility] 3 14:48:09 Current tear of lateral cartilage AND/OR meniscus of knee Completed Not Available [facility] 3 14:48:09 Knee pain Completed Not Available [facility] 3 14:48:09 Depressiv e disorder 83895032 Active 2017 Not Available [facility] 3 14:48:09 Arthritis 7192403 Active 2021 Not Available [facility] 3 14:48:09 Osteoarth ritis 405388080 Active Not Available [facility] 3 14:48:10 Dizziness 876499859 Active 2021 Not Available [facility] 3 14:48:10 Hypothyro idism 59656152 Active 2017 Not Available [facility] 3 14:48:10 Obesity 352794730 Active 2017 Not Available [facility] 3 14:48:10 Hypothyro idism in 053431595 Completed 202111/30/2021 Not Available [facility] 3 14:48:10 Hyperlipi demia 01967172 Active 2021 Not Available [facility] 3 14:48:10 Smoker 90630468 Active 2017 Not Available [facility] 3 14:48:10 Pain in limb 06398673 Completed Not Available [facility] 3 14:48:10 Paresthes ia 39290670 Active 2021 Not Available [facility] 3 14:48:10 Acute bronchiti s 56841078 Completed 202210/30/2023 Kaycee palm, RMA null, [place] [facility] 4 11:25:53 Chest pain 95400987 Completed 202210/30/2023 Kaycee palm, RMA null, [place] [facility] 4 11:25:57 Benign paroxysma l positiona l vertigo 399741620 Completed 202210/30/2023 Kaycee palm RMA null, [place] [facility] 4 11:26:02 Sebaceous cyst of skin 955251589 Active 2023 Brielle Cortes NP [address] [address], [place], [address] , [facility] 4 14:45:23 Impacted cerumen of bilateral ears 57084421193 08776 Active 2023 Leanne Anderson MD [address] [address], [place], [address] , [facility] 4 12:04:08 Pain of ear 809679008 Active 2023 Josi Melton MA null, [facility] 4 11:38:49 Sensorine ural hearing loss 79741723 Active 2023 Belle Hinojosa RN null, [place] [facility] 4 10:21:46 Dysfuncti on of left eustachia n tube 13585223786 64460 Active 2023 NASREEN Nieves [address], [place], [address] , [facility] 4 10:25:11 Thyroid nodule 195263575 Active 2023 Belle Hinojosa RN [facility], [facility] [employer] [facility] 4 12:17:06 Numbness of toe 234783001 Active 2024 Leanne Anderson MD [address], [address], [place], [address] , [facility] [employer] [facility] 5 12:10:31 Problem Notes None recorded. Procedures Surgical History Date Name Laterality Status Provider Name and Address Organization Details Recorded Time 5 Medicare Wellness CPT Code, subsequent completed Gladis Pozo RN [facility] 06/05/2024 15:43:51 5 Advanced Care Planning completed Gladis Pozo RN [facility] 06/05/2024 15:46:53 excision completed Not Available [facility] 14:45:38 Tubal Ligation completed Not Available [facility] 07/27/2022 14:45:38 Imaging Results Imaging Date Name Status LastModified by Organiz ation Details LastModified Time 04/23/2024 audiogram + tympanogram completed [facility] [address] [facility], [place], [address], 04/23/2024 18:28:17 Procedure Notes None recorded. Medical Equipment None Reported. Allergies Allergen ID Allergen Name Allergen Category Reaction Reaction Severity Criticality Documentation Date Start Date Code Code System Note Provider Name and Address Organization Details Recorded Time 84078 morphine medicatio n confusion Not available Not available 07/27/2022 7052 RxNorm Not Available [facility] 14:50:53 Medications Name Sig Start Date Stop Date Status Note LastModified by Organization Details LastModified Time cyclobenzap rine 10 mg tablet Take 1 tablet as needed by oral route at bedtime. active Not Available Not Available No t Available amoxicillin 500 mg capsule Take 1 capsule every 8 hours by oral route for 7 days. 09/05 completed Not Available Not Available Not Available hydrocodone 7.5 mg-ibuprofe n 200 mg tablet 10/19 completed Not Available Not Available Not Available ibuprofen 800 mg tablet TK 1 T PO Q 8 H 02/13 completed Not Available Not Available Not Available fluconazole 150 mg tablet 05/08 completed Not Available Not Available Not Available valacyclovi r 1 gram tablet TAKE 1 TABLET BY MOUTH EVERY 12 HOURS FOR 10 DAYS 10/01 completed Not Available Not Available Not Available hydrocodone 5 mg-acetamin ophen 325 mg tablet TAKE 1 TABLET BY MOUTH EVERY 6 HOURS NEEDED FOR PAIN 12/06 completed Not Available Not Available Not Available meloxicam 15 mg tablet 08/22 completed Not Available Not Available Not Available metronidazo le 0.75 % (37.5 mg/5 gram) vaginal gel INSERT ONE APPLICATO RFUL VAGINALLY AT BEDTIME X 5 DAYS 10/29 completed Not Available Not Available Not Available prednisone 20 mg tablet Take 2 tablets every day by oral route in the morning for 5 days. 05/02 completed Not Available Not Available Not Available clonazepam 0.5 mg tablet 10/19 completed Not Available Not Available Not Available terconazole 0.8 % vaginal cream 10/23 completed Not Available Not Available Not Available metronidazo le 500 mg tablet 07/13 completed Not Available Not Available Not Available ciprofloxac in 250 mg tablet Take 1 tablet twice a day by oral route for 5 days. 11/21 completed Not Available Not Available Not Available acyclovir 400 mg tablet Take 1 tablet every 8 hours by oral route for 7 days. active Not Available Not Available No t Available ciprofloxac in 500 mg tablet 10/19 completed Not Available Not Available Not Available spironolact one 25 mg tablet TAKE 1 TABLET BY MOUTH DAILY active Not Available Not Available No t Available oxycodone-a cetaminophe n 5 mg-325 mg tablet 10/19 completed Not Available Not Available Not Available amoxicillin 875 mg tablet TAKE 1 TABLET BY MOUTH EVERY 12 HOURS FOR 10 DAYS 04/16 completed Not Available Not Available Not Available citalopram 20 mg tablet 10/19 completed Not Available Not Available Not Available lorazepam 0.5 mg tablet Take 1 tablet twice a day by oral route. active Not Available Not Available No t Available estradiol 1 mg tablet TAKE 1 TABLET BY MOUTH DAILY 06/05 completed Not Available Not Available Not Available meclizine 25 mg tablet Take 1 tablet 3 times a day by oral route as needed. 10/29 completed Not Available Not Available Not Available nortriptyli ne 10 mg capsule 10/19 completed Not Available Not Available Not Available ranitidine 150 mg tablet 10/19 completed Not Available Not Available Not Available levothyroxi ne 150 mcg tablet TAKE 1 TABLET BY MOUTH EVERY MORNING ON AN EMPTY STOMACH active Not Available Not Available No t Available diclofenac sodium 75 mg tablet,anais yed release Take 1 tablet twice a day by oral route. as needed 12/06 completed Not Available Not Available Not Available methylpredn isolone 4 mg tablets in a dose pack FOLLOW PACKAGE DIRECTION S 07/13 completed Not Available Not Available Not Available ondansetron 4 mg disintegrat ing tablet 12/06 completed Not Available Not Available Not Available fluticasone propionate 50 mcg/actuati on nasal spray,suspe nsion SHAKE LIQUID AND USE 1 SPRAY IN EACH NOSTRIL TWICE DAILY active Not Available Not Available No t Available dicyclomine 10 mg capsule 10/19 completed Not Available Not Available Not Available naproxen 500 mg tablet TAKE 1 TABLET BY MOUTH AT BEDTIME NEEDED 03/29 completed Not Available Not Available Not Available spironolact one 50 mg tablet TAKE 1 TABLET BY MOUTH TWICE DAILY 10/01 completed Not Available Not Available Not Available amoxicillin 875 mg-potassiu m clavulanate 125 mg tablet Take 1 tablet every 12 hours by oral route. 12/06 completed Not Available Not Available Not Available Ventolin HFA 90 mcg/actuati on aerosol inhaler Inhale 2 puffs every 4 hours by inhalatio n route as needed. 11/06 completed Not Available Not Available Not Available buspirone 15 mg tablet 10/19 completed Not Available Not Available Not Available cyclobenzap rine 5 mg tablet 05/08 completed Not Available Not Available Not Available ciprofloxac in 0.3 %-dexametha sone 0.1 % ear drops,suspe nsion INSTILL 4 DROPS INTO AFFECTED EAR(S) BY OTIC ROUTE 2 TIMES PER DAY FOR 7 DAYS 05/02 completed Not Available Not Available Not Available bupropion HCl XL 150 mg 24 hr tablet, extended release TAKE ONE TABLET DAILY 10/23 completed Not Available Not Available Not Available nitrofurant oin monohydrate /macrocryst als 100 mg capsule 10/23 completed Not Available Not Available Not Available estradiol-n orethindron e acet 0.5 mg-0.1 mg tablet TAKE 1 TABLET BY MOUTH DAILY 12/06 completed Not Available Not Available Not Available Se- 19 (with docusate) 29 mg iron-1 mg-25 mg tablet TK ONE T PO D 03/01 completed Not Available Not Available Not Available Vitals Date Recorded Body height Body mass index (BMI) Body weight Body temperature Heart rate Oxygen saturation Oxygen saturation in Arterial blood by Pulse oximetry Systolic blood pressure Diastolic blood pressure Provider Name and Address Organization Details Last Updated DateTime 4 157.48 cm 36.5 kg/m2 78525.9 8 g 97.5 [degF] 78 /min 98 % 98 % 125 mm[Hg] 79 mm[Hg] Kerri Garcia MA [facility] [employer] 4 14:32:43 Date Recorded Body height Body mass index (BMI) Body weight Body temperature Heart rate Oxygen saturation Oxygen saturation in Arterial blood by Pulse oximetry Systolic blood pressure Diastolic blood pressure Provider Name and Address Organization Details Last Updated DateTime 4 157.48 cm 36.2 kg/m2 17395.2 9 g 97.5 [degF] 73 /min 97 % 97 % 128 mm[Hg] 80 mm[Hg] ZAINAB Quintanilla [facility] [employer] 4 11:54:57 Date Recorded Body height Body mass index (BMI) Body weight Body temperature Provider Name and Address Organization Details Last Updated DateTime 04/16/2024 157.48 cm 36.8 kg/m2 41917.78 g 97.6 [degF] Belle Hinojosa RN [facility] [employer] 04/16/2024 10:08:26 Date Recorded Body height Body mass index (BMI) Body weight Body temperature Provider Name and Address Organization Details Last Updated DateTime 05/02/2024 157.48 cm 36.9 kg/m2 30718.66 g 97.8 [degF] Belle Hinojosa RN [facility] [employer] 05/02/2024 11:54:13 Date Recorded Body height Body mass index (BMI) Body weight Body temperature Heart rate Oxygen saturation Oxygen saturation in Arterial blood by Pulse oximetry Systolic blood pressure Diastolic blood pressure Provider Name and Address Organization Details Last Updated DateTime 157.48 cm 37.5 kg/m2 49792.4 4 g 97.3 [degF] 69 /min 98 % 98 % 134 mm[Hg] 84 mm[Hg] ZAINAB Quintanilla [facility] [employer] 11:39:40 Date Recorded Pain severity - 0-10 verbal numeric rating [Score] - Reported Provider Name and Address Organization Details Last Updated DateTime 06/05/2024 0 Gladis Pozo RN [facility] I [facility] [employer] 06/05/2024 15:44:10 Social History Question Answer Notes LastModified by Organizat ion Details LastModified Time Tobacco Smoking Status Current Every Day Smoker Not Available [facility] 07/27/2022 14:45:11 Do You Have An Advance Directive? No [id number] Information not available 07/27/2022 Is Blood Transfusion Acceptable In An Emergency? Yes [email or web address] Information not available 06/05/2024 What Is Your Level Of Caffeine Consumption? Moderate [email or web address] Information not available 06/05/2024 How Much Tobacco Do You Chew? None [id number] Information not available 07/27/2022 In The 14 Days Before Symptom Onset, Have You Had Close Contact With A Laboratory-confir med COVID-19 While That Case Was Ill? No [id number] Information not available 07/27/2022 In The 14 Days Before Symptom Onset, Have You Had Close Contact With A Person Who Is Under Investigation For COVID-19 While That Person Was Ill? No [id number] Information not available 07/27/2022 What Type Of Diet Are You Following? REGULAR [id number].[id number] 3905 Information not available 07/27/2022 Which Illicit Or Recreational Drugs Have You Used? None [id number].[id number] Information not available 07/27/2022 What Is The Highest Grade Or Level Of School You Have Completed Or The Highest Degree You Have Received? [id number] [email or web address] Information not available 06/05/2024 Have There Been Any Changes To Your Family Or Social Situation? No [email or web address] Information no t available 06/05/2024 What Is The Fluoride Status Of Your Home? Fluoridated MIGRATION.[id number] 0619 Information not available 07/27/2022 Are There Any Guns Present In Your Home? No MIGRATION.268574 0845 Information not available 07/27/2022 Do You Use Insect Repellent Routinely? No [email or web address] Information not available 06/05/2024 Where Do You Live? Apartment MIGRATION.[id number] 7087 Information not available 07/27/2022 Do You Have A Medical Power Of Audio Visual Production Specialist? No [email or web address] Information not available 06/05/2024 What Was The Date Of Your Most Recent Tobacco Screening? 06/05/2024 [email or web address] Information not available 06/05/2024 How Many Children Do You Have? 3 [email or web address] Information not available 06/05/2024 What Is Your Current Pack Years? 20-29packyears MIGRATION.[id number] 3174 Information not available 07/27/2022 Do You Have Any Pets? No [email or web address] Information not available 06/05/2024 What Is Your Relationship Status? Single MIGRATION.[id number] 2591 Information not available 07/27/2022 Do You Use Your Seat Belt Or Car Seat Routinely? Yes [id number].[id number] 8585 Information not available 07/27/2022 Do You Have Smoke And Carbon Monoxide Detectors In Your Home? Yes MIGRATION.592346 2783 Information not available 07/27/2022 At What Age Did You Start Smoking Tobacco? 18 MIGRATION.665927 0840 Information not available 07/27/2022 Are There Any Smokers In Your House? Yes [email or web address] Information not available 06/05/2024 How Much Tobacco Do You Smoke? 1 PPD MIGRATION.408660 2730 Information not available 07/27/2022 Do You Use Sunscreen Routinely? No [email or web address] Information not available 06/05/2024 How Many Years Have You Smoked Tobacco? 28 MIGRATION.156256 0142 Information not available 07/27/2022 Have You Recently Traveled Abroad? No [email or web address] Information not available 06/05/2024 Do You Have Any Dietary Restrictions? No [email or web address] Information not available 06/05/2024 How Many Days In The Past Year Have You Consumed 4 Or More Drinks? 0 [email or web address] Information no t available 06/05/2024 Sex: Female Functional Status Question Answer Note LastModified by Organizat ion Details LastModified Time Do you use any illicit or recreational drugs? No [email or web address] Information not available 06/05/2024 Do you or have you ever used any other forms of tobacco or nicotine? No [email or web address] Information not available 06/05/2024 What is your level of alcohol consumption? Occasional [email or web address] Information not available 06/05/2024 Do you or have you ever used smokeless tobacco? Never used smokeless tobacco MIGRATION.927286 8905 Information not available 07/27/2022 Are you currently employed? No [email or web address] Information not available 06/05/2024 Do you or have you ever used e-cigarettes or vape? Never used electronic cigarettes MIGRATION.116599 7895 Information not available 07/27/2022 What is your exercise level? None [email or web address] Information not available 06/05/2024 Mental Status Question Answer Note LastModified by Organization D etails LastModified Time Do you feel stressed (tense, restless, nervous, or anxious, or unable to sleep at night)? [id number] [email or web address] Information not available 06/05/2024 Family History Relationship Description Onset Age of this Age Resolved Age Notes LastModified by Organization Details LastModified Time Father Essential hypertension [email or web address] Not available 06/16/2023 09:58:52 Father Chronic obstructive pulmonary disease [email or web address] Not available 03/29 09:58:52 Father Congestive heart failure [email or web address] Not available 03/29 09:58:52 Father Malignant lymphoma [email or web address] Not available 03/29 09:58:52 Father Sinusitis [email or web address] Not availabl e 04/16/2024 10:07:46 Father Diabetes mellitus [id number] Not available 07/27/2022 14:45:38 Mother Essential hypertension [email or web address] Not available 06/16/2023 09:58:52 Mother Tremor [email or web address] Not availabl e 04/16/2024 09:58:52 Medical History Condition Response URINARY/BLADDER/KIDNEY PROBLEMS Y ANXIETY DISORDER Y DEPRESSION (INCLUDING POST ) Y Gynecological History Statement/Question Response Menses Monthly N Date of Last Mammogram 07/03/2020 Current Control Method Tubal Ligat ion Date of LMP 10/27/2020 Obstetrics History GPAL:G 0 P 0 0 0 0 Past Encounters Encounter ID Performer Location Encounter Start Date Encounter Closed Date Diagnosis/Indication Diagnosis SNOMED-CT Code Diagnosis ICD10 Code Diagnosis Note [id number] Leanne Anderson MD [facility] Internal Med [address] [place] [address] 10/01/2020 00:00:00 10/01/2020 15:41:10 [id number] MD LASHAWN [facility] [address] [place] [address] 11/06/2020 00:00:00 11/06/2020 13:17:18 [id number] MD MARY Salgado Internal Med [address] [place] [address] 11/27/2020 00:00:00 11/27/2020 10:02:11 [id number] MD LASHAWN [facility] [address] [place] [address] 01/13/2021 00:00:00 01/13/2021 11:22:48 [id number] MD LASHAWN [facility] [address] [place] [address] 03/29/2021 00:00:00 03/29/2021 17:23:27 [id number] MD LASHAWN [facility] [address] [place] [address] 03/29/2021 00:00:00 03/29/2021 17:24:13 [id number] MD LASHAWN [facility] [address] [place] [address] 07/13/2021 00:00:00 07/13/2021 10:50:28 [id number] MD LASHAWN [facility] Internal [facility] [address] [place] [address] 08/09/2021 00:00:00 08/09/2021 12:53:14 [id number] Leanne Anderson MD [facility] Internal [facility] [address] [place] [address] 12/06/2021 00:00:00 12/06/2021 16:07:55 [id number] Leanne Anderson MD [facility] Internal [place] [address] [place] [address] 01/21/2022 00:00:00 01/21/2022 09:58:15 [id number] Leanne Anderson MD [facility] Internal [place] [address] [place] [address] 05/02/2022 00:00:00 05/02/2022 16:57:18 [id number] Leanne Anderson MD [facility] Internal [facility] [address] [place] [address]. [place] [address] 12/01/2022 14:29:41 12/01/2022 15:04:27 Chest pain [id number] R07.9 atypical, already had EKG, will get the report, get cxr , ( smoker )call in 2-3 w eeks if not better [id number] Leanne Anderson MD [facility] Internal [facility] [address] [place] [address] 02/13/2023 10:15:06 02/13/2023 11:05:19 Benign paroxysmal positional vertigo [id number] H81.10 [id number] Leanne Anderson MD [facility] Internal [facility] [address] [place] [address] 10/30/2023 10:58:25 10/30/2023 11:51:34 Obesity [id number] E66.9 advise dto lose, watch diet Smoker [id number] F17.200 advised to quit Hyperlipidemia [id number] E78.5 need to watch diet Hypothyroidism [id number] E03.9 on meds [id number]|2024-10-11 11:03:00|2024-10-11 11:03:00|XMS_ITS|DENAE CHURCHILL|External Medical Summaries|[id number]|" Clinical Summary Created on: October 11, 2024 Janie Stinson : 1975 Sex: Female Author Organization [facility] Care Team Providers Care Baseball Club Manager Name Role Phone Unavailable Primary Care Provider Unavailabl e Social History Tobacco Use Types Packs/Day Years Used Date Smoking Tobacco: Never Assessed Comments Unknown Sex and Gender Information Value Date Recorded Sex Assigned at Not on file Legal Sex Female 12:25 PM CDT Gender Identity Not on file Sexual Orientation Not on file Plan of Treatment Health Maintenance Due Date Last Done Comments Hepatitis C Virus (HCV) Screening 1975 TdaP Immunization 1975 Hepatitis B Immunization (1 of 3 - 19+ 3-dose series) 1994 Pap Smear 1996 Cervical Cancer Screening (CCS) 2005 HPV/Cotest 2005 Discussion re Starting/Frequ ency of Mammograms 2015 Colonoscopy 2020 Colorectal Cancer Screening 2020 Influenza Immunization (#1) 2024 SARS-COV-2 Immunization ( season) 2024 Respiratory Syncytial Virus (RSV) Immunization (Adult) (1 - 1-dose 75+ series) 2050 Meningococcal Immunization (ACWY) Aged Out No longer eligible based on patient's age to complete this topic Pneumococcal Immunization Combined Aged Out No longer eligible based on patient's age to complete this topic Rotavirus Immunization Aged Out No lo nger eligible based on patient's age to complete this topic "
--- OUTSIDE RECORDS SUMMARY | 2024-10-11 11:03 | XMS_ITS | Clinical Summary ---
Author Organization [facility] Address [address] [place] [address] Care Team Providers Care Cattle Broker Name Role Phone Unavailable Primary Care Provider Unavailabl e Source Comments [facility],non-owned Affiliates and Associated Physician Practices is amultiple site organization consisting of ambulatory clinics and hospital sitesin [place], [place], [place] and [place]. This disclosure is being madepursuant to the Care Everywhere program and may not contain all information available regarding this patient. Last updated 18.[facility] Allergies No known active allergies Medications * Be aware that medications may not be up to date on this document. Alwaysverify current medications with the patient. ALPRAZolam (XANAX) 0.5 MG tablet Take 0.5 mg by mouth. Active levothyroxine (SYNTHROID) 100 MCG tablet Take 100 mcg by mouth daily before breakfast. Active Social History Tobacco Use Types Packs/Day Years Used Date Smoking Tobacco: Every Day Cigarettes Alcohol Use Standard Drinks/Week Comments Yes 0 (1 standard drink = 0.6 oz pur e alcohol) Comments Unknown Sex and Gender Information Value Date Recorded Sex Assigned at Not on file Legal Sex Female 6:17 AM SPORTS REPORTER Gender Identity Not on file Sexual Orientation Not on file Last Filed Vital Signs Vital Sign Reading Time Taken Comments Blood Pressure 96/58 05/11/2011 1:58 PM SPORTS REPORTER Pulse 74 05/11/2011 1:58 PM SPORTS REPORTER Temperature 36 C (96.8 F) 05/11/2011 12:52 PM SPORTS REPORTER Respiratory Rate 16 05/11/2011 1:58 PM SPORTS REPORTER Oxygen Saturation 97% 05/11/2011 1:58 PM SPORTS REPORTER Inhaled Oxygen Concentration - - Weight 77.1 kg (170 lb) 05/11/2011 12:52 PM SPORTS REPORTER Height - - Body Mass Index - - Plan of Treatment Health Maintenance Due Date Last Done Comments COLOGUARD (AGES 45-75) - COL ON CA SCREENING 1975 COLON MONITORING 1975 COLONOSCOPY - COLON CA SCREENING 1975 CT COLONOGRAPHY - COLON CA SCREENING 1975 Colorectal Cancer Screening 1975 FIT - COLON CA SCREENING 1975 FLEX SIG - COLON CA SCREENING 1975 LIPID TESTING 1975 MAMMOGRAM 1975 PAP SMEAR 1975 HIV SCREENING 1990 HEPATITIS C SCREENING 05/27/1993 DTAP/TDAP/TD VACCINES (1 - Tdap) 1994 HEPATITIS B VACCINE (1 of 3 - 19+ 3-dose series) 1994 COVID-19 VACCINE (1 - 2023-2 5 season) 2024 DEPRESSION SCREENING 05/29/2024 MEDICARE AWV CALENDAR YEAR 2024 INFLUENZA VACCINE (Season Ended) 2025 ZOSTER VACCINE (1 of 2) 2025 HIB VACCINE Aged Out No longer eligi ble based on patient's age to complete this topic HPV VACCINE Aged Out No longer eligi ble based on patient's age to complete this topic MENINGOCOCCAL (Group B) VACC INE SHARED DECISION-MAKING Aged Out No longer eligibl e based on patient's age to complete this topic MENINGOCOCCAL GROUPS A/C/Y/W VACCINE Aged Out No longer eligible b ased on patient's age to complete this topic Insurance MEDICARE MEDICAID - OUT OF STATE [place] DUAL ADV [place]
--- OUTSIDE RECORDS SUMMARY | 2024-10-11 11:03 | XMS_ITS | CONTINUITY OF CARE DOCUMENT ---
Author Name emy quevedo Address Unknown Organization [facility] Address [address] [place] [address] Phone [phone] Care Team Providers Care Fancy Stitcher Name Role Phone emy quevedo Unavailable Unavailable INSURANCE PROVIDERS Payer name Policy type / Coverage type [place] red democrat [employer] Medicaid 0 [id number] [place] [employer] Medicare [id number]
--- NOTE | 2024-10-11 11:24 | ECG_ITS ---
Test Date: 2024-10-11 11:30:38 Measurements Intervals [place] Rate: P: 0 [place]: 0 QRS: 0 QRSD: 0 T: 0 QT: 0 QTc: 0 Interpretive Statements SINUS RHYTHM No previous ECG available for comparison Electronically Signed On 10-11-2024 15:10:32 CDT by Sahra Edwards M.D.
[2024-10-11 12:10] VITALS: BP 134/88; PULSE 66; RESP 18; O2SAT 97
--- OUTSIDE RECORDS SUMMARY | 2024-10-11 12:11 | XMS_ITS | Clinical Summary ---
Author Organization [facility] Care Team Providers Care Drapery Inspector Name Role Phone Unavailable Primary Care Provider [...]
--- OUTSIDE RECORDS SUMMARY | 2024-10-11 12:12 | XMS_ITS | Clinical Summary ---
Author Organization [facility] Address [address] [place] [address] Care Team Providers Care Mail Clerk Bills Name Role Phone Gerald Marvin MD Primary Care Provider [phone] Allergies Active Allergy Reactions Criticality Noted Date [...] 6:06 AM 10/14/2021 1:45 PM Care Teams Mail Clerk Bills Relationship Specialty Start Date End Date Gerald Marvin MD PCP - General INTERNAL MEDICINE 05/29/21
--- OUTSIDE RECORDS SUMMARY | 2024-10-11 12:12 | XMS_ITS | Clinical Summary ---
Author Organization [facility] Address [address] [place] [address] Care Team Providers Care Retail Advertising Account Executive Name Role Phone Unavailable Primary Care Provider Unavailabl e Source Comments [facility],non-owned Affiliates and Associated Physician Practices is amultiple site organization consisting of ambulatory clinics and hospital sitesin [place], [place], [place] and [place]. This disclosure is being madepursuant to the Care Everywhere program and may not contain all information available regarding this patient. Last updated 18.[facility] Allergies No known active allergies Medications * [...] on file Legal Sex Female 6:17 AM ORTHOTIC PRACTITIONER Gender Identity Not on file Sexual Orientation Not on file Last Filed Vital Signs Vital Sign Reading Time Taken Comments Blood Pressure 96/58 05/11/2011 1:58 PM ORTHOTIC PRACTITIONER Pulse 74 05/11/2011 1:58 PM ORTHOTIC PRACTITIONER Temperature 36 C (96.8 F) 05/11/2011 12:52 PM ORTHOTIC PRACTITIONER Respiratory Rate 16 05/11/2011 1:58 PM ORTHOTIC PRACTITIONER Oxygen Saturation 97% 05/11/2011 1:58 PM ORTHOTIC PRACTITIONER Inhaled Oxygen Concentration - - Weight 77.1 kg (170 lb) 05/11/2011 12:52 PM ORTHOTIC PRACTITIONER Height - - Body Mass Index - [...] OUT OF STATE [place] [employer] DUAL ADV ME
[2024-10-11] MEDS: MECLIZINE HCL 25 MG TABLET PO (12:30)
[2024-10-11] MEDS: SODIUM CHLORIDE 0.9% IV 1,000 ML 999 ML IV CONT (12:31)
[2024-10-11 12:40] LABS: Basophils Absolute Auto 0.1 K/mm3 (0.0-0.1); Basophils Percent Auto 0.6 % (0.2-1.2); Eosinophils Absolute Auto 0.1 K/mm3 (0-0.3); Eosinophils Percent Auto 1.6 % (0-4.4); Hematocrit 43.2 % (37.0-47.0); Hemoglobin 14.4 g/dL (12.0-15.0); Immature Granulocyte Absolute 0.01 K/mm3 (0.00-0.031); Immature Granulocyte Percent A 0.1 % (0-0.5); Lymphocytes Absolute Auto 2.02 K/mm3 (0.9-3.2); Lymphocytes Percent Auto 24.2 % (18.3-44.2); Mean Corpuscular HGB Conc 33.3 g/dl (32-36); Mean Corpuscular Hemoglobin 29.3 pg (26-34); Mean Corpuscular Volume 87.8 fl (80-100); Mean Platelet Volume 9.6 fl (7.4-10.4); Monocytes Absolute Auto 0.6 K/mm3 (0.1-0.6); Monocytes Percent Auto 6.6 % (2.6-8.5); Neutrophils Absolute Auto 5.6 K/mm3 (1.3-6.7); Neutrophils Percent Auto 66.9 % (45.5-73.1); Platelet Count Result 279 k/mm3 (150-375); Red Blood Count 4.92 M/mm3 (4.2-5.4); Red Cell Distribution Width 13.8 % (11.5-14.5); White Blood Count 8.4 K/mm3 (4.5-10.0)
[2024-10-11 12:56] LABS: Alanine Aminotransferase 25 U/L (6-35); Albumin Level 4.1 g/dL (3.5-5.1); Alkaline Phosphatase 69 U/L (38-126); Anion Gap 8 mmol/L (4-12); Aspartate Amino Transferase 28 U/L (14-36); Bilirubin,Total 0.5 mg/dL (0.2-1.3); Blood Urea Nitrogen 17 mg/dL (7-17); Calcium 8.8 mg/dL (8.4-10.2); Carbon Dioxide 26 mmol/L (22-30); Chloride 107 mmol/L (98-107); Estimated CRCL calculation 93 ml/min; Estimated Glomerular Filt Rate > 60; Glucose 107 mg/dL (65-110); Potassium 3.7 mmol/L (3.4-5.0); Sodium 141 mmol/L (137-145)
--- NOTE | 2024-10-11 13:54 | ED.GENADULT ---
HPI - General Adult General Chief complaint: Dizziness Stated complaint: Dizziness progressively getting worse Time Seen by Provider: 10/11/24 11:54 History of Present Illness HPI narrative: Patient is a 49-year-old female who presents ER with dizziness. Worsening last couple weeks. Spinning nature. Worse with lying back or turning her head. Occasional nausea. No fevers or chills or sweats. No ringing in the ear or loss of hearing. Has had some mild sinus congestion times. The only thing that helps her symptoms is lying still. Related Data Home Medications Medication Instructions Recorded Confirmed Last Taken Type levothyroxine 150 mcg tablet 150 mcg PO DAILY 11/14/22 04/01/24 11/17/22 History Allergies Allergy/AdvReac Type Severity Reaction Status Date / Time morphine AdvReac Mild Dizziness Verified 10/11/24 11:00 Review of Systems Review of Systems: All systems reviewed & are unremarkable except as noted in HPI and below Constitutional: Constitutional: Reports no additional constitutional complaints ENT: Reports system reviewed and no additional complaints, except as documented Cardiovascular: Cardiovascular: Reports no additional cardiovascular complaints Respiratory: Respiratory: Reports no additional respiratory complaints Gastrointestinal: Gastrointestinal: Reports no additional gastrointestinal complaints [facility] Past Medical History Medical History (Updated 10/11/24 @ 14:41 by Dain Genao MD) PONV (postoperative nausea and vomiting) Fibroid Anxiety Hypothyroidism AMRIK (obstructive sleep apnea) Surgical History Surgical History (Updated 11/18/22 @ 08:01 by Faheem Montoya DO) Hx laparoscopic cholecystectomy Social History Social History Smoking packs per day: 1 Smoking cigarettes per day: 20.0 Years smoked: 30 Smoking pack-years: 30.00 Smoking status: Current every day smoker Tobacco type: cigarettes Alcohol use details: OCCASIONAL DRINK Substance use: never Substance use type: does not use Living arrangements: with family Spiritual care concerns: No Exam Narrative: GENERAL: Well-appearing, well-nourished, and in no acute distress. HEAD: Normocephalic, atraumatic. EYES: PERRL and EOMI. Mild nystagmus with left gaze. ENT: Mucous membranes moist. TMs normal, small amount of cerumen in the ear canals bilaterally. CHEST: Clear to auscultation. No respiratory distress. HEART: Regular rate and rhythm. Normal peripheral pulses. EXTREMITIES: Normal range of motion. No edema. SKIN: Warm, dry, no rash. NEURO: Alert and oriented x3. PSYCH: Normal mood and affect. Course Course Emergency Course: Dizziness improved with meclizine and fluids. Discharge home with supportive care. Labs unremarkable. Vital Signs Vital signs: Vital Signs Temperature 98 F 10/11/24 11:02 Pulse Rate 73 10/11/24 11:02 Respiratory Rate 16 10/11/24 11:02 Blood Pressure 137/91 H 10/11/24 11:02 Pulse Oximetry 100 10/11/24 11:02 Temperature 98 F 10/11/24 11:02 Pulse Rate 66 10/11/24 12:10 Respiratory Rate 18 10/11/24 12:10 Blood Pressure 134/88 10/11/24 12:10 Pulse Oximetry 97 10/11/24 12:10 Medical Decision Making Vital Signs Vital Signs: Vital Signs Temperature 98 F 10/11/24 11:02 Pulse Rate 73 10/11/24 11:02 Respiratory Rate 16 10/11/24 11:02 Blood Pressure 137/91 H 10/11/24 11:02 Pulse Oximetry 100 10/11/24 11:02 Temperature 98 F 10/11/24 11:02 Pulse Rate 66 10/11/24 12:10 Respiratory Rate 18 10/11/24 12:10 Blood Pressure 134/88 10/11/24 12:10 Pulse Oximetry 97 10/11/24 12:10 Lab Data 10/11/24 12:32 10/11/24 12:32 Labs: Lab Results 10/11/24 Range/Units 12:32 WBC 8.4 (4.5-10.0) K/mm3 RBC 4.92 (4.2-5.4) M/mm3 Hgb 14.4 (12.0-15.0) g/dL Hct 43.2 (37.0-47.0) % MCV 87.8 (80-100) fl MCH 29.3 (26-34) pg MCHC 33.3 (32-36) g/dl RDW 13.8 (11.5-14.5) % Plt Count 279 (150-375) k/mm3 MPV 9.6 (7.4-10.4) fl Immature Gran % (Auto) 0.1 (0-0.5) % Neut % (Auto) 66.9 (45.5-73.1) % Lymph % (Auto) 24.2 (18.3-44.2) % Barron % (Auto) 6.6 (2.6-8.5) % Eos % (Auto) 1.6 (0-4.4) % Baso % (Auto) 0.6 (0.2-1.2) % Lymph # (Auto) 2.02 (0.9-3.2) K/mm3 Barron # (Auto) 0.6 (0.1-0.6) K/mm3 Eos # (Auto) 0.1 (0-0.3) K/mm3 Baso # (Auto) 0.1 (0.0-0.1) K/mm3 Abs Immat Gran (auto) 0.01 (0.00-0.031) K/mm3 Absolute Neuts (auto) 5.6 (1.3-6.7) K/mm3 Absolute Nucleated RBC 0.000 (0.0-0.012) K/mm3 Nucleated RBC % 0.0 (0.0-0.2) % Sodium 141 (137-145) mmol/L Potassium 3.7 (3.4-5.0) mmol/L Chloride 107 (98-107) mmol/L Carbon Dioxide 26 (22-30) mmol/L Anion Gap 8 (4-12) mmol/L BUN 17 (7-17) mg/dL Creatinine 0.66 L (0.7-1.0) mg/dL Estim Creat Clear Calc 93 ml/min Estimated GFR > 60 (59 - ) Glucose 107 (65-110) mg/dL Calcium 8.8 (8.4-10.2) mg/dL Total Bilirubin 0.5 (0.2-1.3) mg/dL AST 28 (14-36) U/L ALT 25 (6-35) U/L Alkaline Phosphatase 69 (38-126) U/L Total Protein 8.0 (6.3-8.2) g/dL Albumin 4.1 (3.5-5.1) g/dL ECG Data EKG #1: ECG completion date: 10/11/24 ECG completion time: 11:30 EKG Interpretation: normal rate, sinus rhythm, no ectopy, normal QRS, normal QT and NL axis Discharge Plan Discharge Clinical Impression: Vertigo Patient Disposition: Home Condition: Stable Instructions: Vertigo (ED) Additional Instructions: Return the ER if you have worsening dizziness, you cannot keep down food or water, you lose consciousness, or you have additional concerns. Patient Language: Spanish Prescriptions: No Action amoxicillin 875 mg tablet 875 mg PO Q12H 10 Days Qty: 20 0RF fluticasone propionate [Flonase Allergy Relief] 50 mcg/actuation spray,suspension 1 spray intranasal BID Qty: 16 0RF Rx Instructions: administer into each nostril levothyroxine 150 mcg tablet 150 mcg PO DAILY Follow-up/Referrals: Yon,Gerald Payton MD [Primary Care Provider] - 1 Week
[2024-10-11 15:05] VITALS: BP 142/84; PULSE 74; RESP 16; O2SAT 98
== END 2024-10-11 15:06 | disposition home or self-care (01) ==
PROVIDERS: Emergency Provider Emergency Medicine; PCP Internal Medicine
DX: R42 Dizziness and giddiness (principal); E03.9 Hypothyroidism, unspecified; F17.210 Nicotine dependence, cigarettes, uncomplicated
CPT/HCPCS: 36415; 80053; 85025; 93005; 96360; 99283; A9270; J7030

== ENCOUNTER 2024-11-28 11:10 | Outpatient (CLI) | payer OTHER, SELFPAY ==
--- NOTE | ~2024-11-28 | XR_ITS ---
XR foot LT min 3V Ordering provider: Gerald Marvin, History: . pain in both feet, PT STATES NO KNOWN INJURY . Comparison: None. FINDINGS: BONES: No acute fracture or dislocation. JOINT SPACES: Normal. No tarsal coalition. SOFT TISSUES: Normal. IMPRESSION: No acute osseous abnormality left foot. Reviewed, dictated and finalized at location A.
--- OUTSIDE RECORDS SUMMARY | 2024-11-28 11:16 | XMS_ITS | Clinical Summary ---
Author Organization [facility] Care Team Providers Care Retort Furnace Operator Name Role Phone Unavailable Primary Care Provider [...]
--- OUTSIDE RECORDS SUMMARY | 2024-11-28 11:16 | XMS_ITS | Clinical Summary ---
Author Organization [facility] Address [address] [place] [address] Care Team Providers Care Maternity Floor Supervisor Name Role Phone Unavailable Primary Care Provider Unavailabl e Source Comments [facility],non-owned Affiliates and Associated Physician Practices is amultiple site organization consisting of ambulatory clinics and hospital sitesin [place], [place], [place] and [place]. This disclosure is being madepursuant to the Care Everywhere program and may not contain all information available regarding this patient. Last updated 18.[facility] Allergies No known active allergies Medications * [...] on file Legal Sex Female 6:17 AM FERRYBOAT OPERATOR HELPER Gender Identity Not on file Sexual Orientation Not on file Last Filed Vital Signs Vital Sign Reading Time Taken Comments Blood Pressure 96/58 05/11/2011 1:58 PM FERRYBOAT OPERATOR HELPER Pulse 74 05/11/2011 1:58 PM FERRYBOAT OPERATOR HELPER Temperature 36 C (96.8 F) 05/11/2011 12:52 PM FERRYBOAT OPERATOR HELPER Respiratory Rate 16 05/11/2011 1:58 PM FERRYBOAT OPERATOR HELPER Oxygen Saturation 97% 05/11/2011 1:58 PM FERRYBOAT OPERATOR HELPER Inhaled Oxygen Concentration - - Weight 77.1 kg (170 lb) 05/11/2011 12:52 PM FERRYBOAT OPERATOR HELPER Height - - Body Mass Index - - Plan of Treatment Upcoming Encounters Date Type Department Care Team (Late st Contact Info) Description 01/24/2025 9:00 AM CDT Appointment [address] [address] Health Maintenance Due Date Last Done Comments COLOGUARD (AGES 45-75) - COL ON CA SCREENING 1975 COLON MONITORING 1975 COLONOSCOPY - COLON CA SCREENING 1975 CT COLONOGRAPHY - COLON CA SCREENING 1975 Colorectal Cancer Screening 1975 FIT - COLON CA SCREENING 1975 FLEX SIG - COLON CA SCREENING 1975 LIPID TESTING 1975 MAMMOGRAM 1975 HIV SCREENING 1990 HEPATITIS C SCREENING 05/27/1993 DTAP/TDAP/TD VACCINES (1 - Tdap) 1994 HEPATITIS B VACCINE (1 of 3 - 19+ 3-dose series) 1994 PAP SMEAR 1996 COVID-19 VACCINE ( - 2023-2 5 season) 2024 DEPRESSION SCREENING 05/29/2024 MEDICARE AWV CALENDAR YEAR 2024 INFLUENZA VACCINE (#1) 2025 ZOSTER VACCINE (1 of 2) 2025 [...] OUT OF [place] DUAL ADV [place]
--- OUTSIDE RECORDS SUMMARY | 2024-11-28 11:16 | XMS_ITS | Data Portability ---
Author Organization [place] - [place] [employer], Main Office Address [address] [place] [address] Care Team Providers Care Patternmaker Name Role Phone LEANNE ANDERSON Primary Care Provider [phone] Assessment No assessment recorded. Plan of Treatment Reminders Order Date Submit Date Provider Last Modified By Organization Details Last Modified Time Details Appointments Any 15 2024 09:15A M Leanne Anderson MD Not available Not available Not available Lab uric acid, serum or plasma 2024 025 [facility], [address] [place], [address], 11/28/2024 10:43:05 TSH, serum or plasma 2024 025 [facility], [address] [place], [address], 11/15/2024 04:14:00 T4, free, serum 2024 025 [facility], [address] [place], [address], 11/15/2024 04:14:00 lipid panel, serum 2024 025 [facility], [address] [place], [address], 11/15/2024 04:13:59 CMP, serum or plasma 2024 025 [facility], [address] [place], [address], 11/15/2024 04:14:00 Referral None recorded. Procedures bere maneuver (PROC) 2024 025 Not available 10/18/2024 10:18:05 Surgeries None recorded. Imaging XR, foot, 3 or more view 2024 [email or web address] Not available 11/28/2024 11:15:52 MAMMO, screening , bilateral 2024 [email or web address] [facility], [address], [address] [facility], [place], [address], 06/05/2024 14:48:49 Medication Orders meloxicam 15 mg tablet 2024 [id number], [address] [facility], [place], [place], [id number], 11/28/2024 10:43:20 levothyro xine 150 mcg tablet 2024 025 [facility] #[id number], [address], [place], [place], [id number], 11/28/2024 10:43:18 prednison e 20 mg tablet 2023 024 [email or web address] [facility][id number], [address] [place], [place], [id number], 05/02/2024 08:21:37 Patient TargetsNo targets recorded. Patient Instructions Encounter Date Encounter Id Patient Instructions Last Modified By Organization Details Last Modified Time 04/16/2024 [id number] prescribed prednisone to be taken daily for 5 days for your left Eustachian tube dysfunction. She will have an audiogram and tympanogram completed. We will follow-up when results become available. If symptoms continue to persist after completion of medical management, contact the office to be seen for an evaluation for a possible ETBD with tube placement. [email or web address] Not available 04/16/2024 10:28:24 05/02/2024 [id number] the patient is n ot quite ready for Eustachian tube Balloon but is interested in a thyroid ultrasound and hormone levels. [email or web address] Not available 05/02/2024 12:25:21 06/05/2024 [id number] dementia rating scale-2* Not available 06/05/2024 16:58:37 alcohol misuse* Not available 06/05/2024 16:58:37 depression screening* Not available 06/05/2024 16:58:37 multi-dimensiona l health assessment questionnaire* [email or web address] Not available 06/06/2024 14:07:07 advance directiv es: care instructions Not available 06/05/2024 16:58:37 advance care planning: care instructions Not available 06/05/2024 16:58:37 [place] Advance Directives Not available 06/05/2024 16:58:37 Personalized Hea lth Plan and Screening Recommendations Advance Directives - [...] common diseases from occurring) Smoking Risk: Smoker Continue to consider stopping smoking and call if we can assist you Alcohol Misuse Screening: Negative Weight: Overweight Physical activity: Need more exercise/physical activity minimum of 10-20 minutes of activity that causes mild breathlessness/day Nutrition: Average Fall Risk (screened today): Low Vaccines Pneumococcal: Recommended at age 50 Influenza: Recommended today, but you have declined Chronic Disease Risks Stroke: Intermediate Risk Active diagnosis, Continue current treatment plan Heart Attack: Intermediate Risk Active diagnosis, Continue current treatment plan Clogging of the Arteries: Intermediate Risk Active diagnosis, Continue current treatment plan Diabetes: Low Risk I have no recommendations Secondary Prevention/Interven tion (detects treatable diseases before they may cause symptoms, disability, or ) Breast Cancer Screening with mammogram: Recommended today Cervical/Uterine/Ov heaven Cancer Screening: No screening necessary- seen by Dr. Wellington Osteoporosis Screening: No screening necessary Date Screening Last Performed: Colon Cancer Screening: Cologuard (DNA stool test) Recommended Date Screening Last Performed: Eye Disease Screening: No Eye exam necessary Dementia Risk: Low I have no recommendations Depression Screening: Negative I have no recommendations. [email or web address] Not available 06/05/2024 15:54:34 Reason for Referral None Reported. Results Created Date Observation Date Name Description Value Unit Range Abnormal Flag Note LastModifiedBy Organization Detail LastModifiedTime 04/23/20 24 04/23/2024 audio gram + tympa nogra m No observ ation record ed. [facility] [address], [place], [address], 04/23/2024 18:28:17 Result Notes None recorded. Problems Name Problem SNOMED Code Status Onset Date Resolution Date Notes Provider Name and Address Organization Details Recorded Time Impacted cerumen of bilateral ears 44608646728 15594 Completed 202111/30/2021 Leanne Anderson MD [address] [facility], [facility] [address], [place], [address] , [facility] [employer] [facility] 4 12:04:08 Acquired hypothyro idism 162737974 Active 2021 Not Available [facility] 3 14:48:09 Mammograp hy abnormal 439891532 Completed 201701/24/2018 Not Available [facility] 3 14:48:09 Postopera tive hypothyro idism 71957058 Completed 202111/30/2021 Not Available [facility] 3 14:48:09 Lesion of lip 097966883 Active 2021 Not Available [facility] 3 14:48:09 Current tear of lateral cartilage AND/OR meniscus of knee Completed Not Available [facility] 3 14:48:09 Knee pain Completed Not Available [facility] 3 14:48:09 Depressiv e disorder 50603204 Active 2017 Not Available [facility] 3 14:48:09 Arthritis 7847660 Active 2021 Not Available [facility] 3 14:48:09 Osteoarth ritis 623539982 Active Not Available [facility] 3 14:48:10 Dizziness 730385540 Active 2021 Not Available [facility] 3 14:48:10 Hypothyro idism 95019223 Active 2017 Not Available [facility] 3 14:48:10 Obesity 029621150 Active 2017 Not Available [facility] 3 14:48:10 Hypothyro idism in 519909471 Completed 202111/30/2021 Not Available [facility] 3 14:48:10 Hyperlipi demia 31612306 Active 2021 Not Available [facility] 3 14:48:10 Smoker 15126952 Active 2017 Not Available [facility] 3 14:48:10 Pain in limb 05736882 Completed Not Available [facility] 3 14:48:10 Paresthes ia 61907614 Active 2021 Not Available [facility] 3 14:48:10 Acute bronchiti s 71328765 Completed 202210/30/2023 Kaycee palm RMA null, [place] [facility] 4 11:25:53 Chest pain 15838070 Completed 202210/30/2023 Kaycee palm RMA null, [place] [facility] 4 11:25:57 Benign paroxysma l positiona l vertigo 204071676 Completed 202210/30/2023 Belle Hinojosa RN null, [place] [facility] 5 14:55:02 Sebaceous cyst of skin 832058965 Active 2023 Brielle Cortes NP [address], [place], [address] , [facility] 4 14:45:23 Impacted cerumen of bilateral ears 74698053554 69850 Active 2023 Leanne Anderson MD [address], [place], [address] , [facility] 4 12:04:08 Pain of ear 764703196 Active 2023 Josi Melton MA null, [facility] 4 11:38:49 Sensorine ural hearing loss 20754184 Active 2023 Belle Hinojosa RN null, [facility] 4 10:21:46 Dysfuncti on of left eustachia n tube 14258569480 49425 Active 2023 NASREEN Nieves [address], [address], [place], [address] , [facility] 4 10:25:11 Thyroid nodule 993873886 Active 2023 Belle Hinojosa RN null, [facility] 4 12:17:06 Numbness of toe 209210319 Active 2024 Leanne Anderson MD [address], [place], [address] , [facility] 5 12:10:31 Benign paroxysma l positiona l vertigo 869036928 Active 2024 Francis Polanco MD [address], [place], [address] , [facility] 5 14:54:35 Benign paroxysma l positiona l vertigo 007614520 Active 2024 Belle Hinojosa RN null, [facility] 5 14:55:01 Pain in both feet 87720237118 032018 Active 2024 Leanne Anderson MD [address], [place], [address] , [facility] 5 10:39:36 Problem Notes None recorded. Procedures Surgical History Date Name Laterality Status Provider Name and Address Organization Details Recorded Time 5 Medicare Wellness CPT Code, subsequent completed DENISE Pedraza [facility] 06/05/2024 15:43:51 Advanced Care Planning completed Gladis Pozo RN [facility] 06/05/2024 15:46:53 excision completed Not Available Critical [facility] hospital 14:45:38 Tubal Ligation completed Not Available [facility] 07/27/2022 14:45:38 Imaging Results None recorded. Procedure Notes None recorded. Medical Equipment None Reported. Allergies Allergen ID Allergen Name Allergen Category Reaction Reaction Severity Criticality Documentation Date Start Date Code Code System Note Provider Name and Address Organization Details Recorded Time 78331 morphine medicatio n confusion Not available Not available 07/27/2022 7052 RxNorm Not Available [facility] 14:50:53 Medications Name Sig Start Date Stop [...] Available Not Available meloxicam 15 mg tablet Take 1 tablet every day by oral route. 2024 active Not Available Not Available Not Avai lable metronidazo le 0.75 % (37.5 mg/5 gram) [...] Available Not Available meclizine 25 mg tablet TAKE 1 TABLET BY MOUTH THREE TIMES DAILY active Not Available Not Available No t Available nortriptyli ne 10 mg capsule 10/19 completed Not Available Not Available Not Available ranitidine 150 mg tablet 10/19 completed Not Available Not Available Not Available levothyroxi ne 150 mcg tablet TAKE 1 TABLET BY MOUTH EVERY MORNING ON AN EMPTY STOMACH 2024 active MADHAV 04/11 NOV 5 ok to rf Not Available Not Available Not Available diclofenac sodium 75 mg tablet,anais yed [...] in Arterial blood by Pulse oximetry Systolic And Diastolic Provider Name and Address Organization Details Last Updated DateTime 5 157.48 cm 37.5 kg/m2 05431.4 4 g 97.3 [degF] 69 /min 98 % 98 % 134/84 mm[Hg] ZAINAB Quintanilla [facility] [employer] [facility] 11:39:40 Date Recorded Body height Body mass index (BMI) Body weight Body temperature Provider Name and Address Organization Details Last Updated DateTime 10/17/2024 157.48 cm 37.5 kg/m2 65261.44 g 97.6 [degF] Belle Hinojosa RN [facility] [employer] [facility] 10/17/2024 14:39:45 Date Recorded Body height Body mass index (BMI) Body weight Body temperature Oxygen saturation Oxygen saturation in Arterial blood by Pulse oximetry Heart rate Systolic And Diastolic Provider Name and Address Organization Details Last Updated DateTime 157.48 cm 37.7 kg/m2 82092.0 3 g 96 [degF] 98 % 98 % 76 /min 128/84 mm[Hg] Bruna Bryce oswald [facility] [employer] [facility] 10:23:07 Date Recorded Body height Body mass index (BMI) Body weight Body temperature Provider Name and Address Organization Details Last Updated DateTime 04/16/2024 157.48 cm 36.8 kg/m2 92020.78 g 97.6 [degF] Belle Hinojosa RN [facility] [employer] [facility] 04/16/2024 10:08:26 Date Recorded Body height Body mass index (BMI) Body weight Body temperature Provider Name and Address Organization Details Last Updated DateTime 05/02/2024 157.48 cm 36.9 kg/m2 91314.66 g 97.8 [degF] Belle Hinojosa RN [facility] [employer] [facility] 05/02/2024 11:54:13 Social History Question Answer Notes LastModified by Organizat ion Details LastModified Time Tobacco Smoking Status Current Every Day Smoker Not Available [employer] 07/27/2022 14:45:11 Do You Have An Advance Directive? No [id number] Information not available 07/27/2022 Is Blood Transfusion Acceptable In An Emergency? Yes [email or web address] Information not available 06/05/2024 What Is Your Level Of Caffeine Consumption? Moderate [email or web address] Information not available 06/05/2024 How Much Tobacco Do You Chew? None MIGRATION.519646 0385 Information not available 07/27/2022 In The 14 Days Before Symptom Onset, Have You Had Close Contact With A Laboratory-confir med COVID-19 While That Case Was Ill? No MIGRATION.358135 0290 Information not available 07/27/2022 In The 14 Days Before Symptom Onset, Have You Had Close Contact With A Person Who Is Under Investigation For COVID-19 While That Person Was Ill? No MIGRATION.316743 6962 Information not available 07/27/2022 What Type Of Diet Are You Following? REGULAR MIGRATION.181686 1933 Information not available 07/27/2022 Which Illicit Or Recreational Drugs Have You Used? None MIGRATION.512799 6412 Information not available 07/27/2022 What Is The Highest Grade Or Level Of School You Have Completed Or The Highest Degree You Have Received? [id number] [email or web address] Information not available 06/05/2024 Have There Been Any Changes To Your Family Or Social Situation? No [email or web address] Information no t available 06/05/2024 What Is The Fluoride Status Of Your Home? Fluoridated MIGRATION.783398 5282 Information not available 07/27/2022 Are There Any Guns Present In Your Home? No MIGRATION.826643 6756 Information not available 07/27/2022 Do You Use Insect Repellent Routinely? No [email or web address] Information not available 06/05/2024 Where Do You Live? Apartment MIGRATION.005485 4624 Information not available 07/27/2022 Do You Have A Medical Power Of Geophysical Observer? No [email or web address] Information not available 06/05/2024 What Was The Date Of Your Most Recent Tobacco Screening? 06/05/2024 [email or web address] Information not available 06/05/2024 How Many Children Do You Have? 3 [email or web address] Information not available 06/05/2024 What Is Your Current Pack Years? 20-29packyears MIGRATION.582186 7940 Information not available 07/27/2022 Do You Have Any Pets? No [email or web address] Information not available 06/05/2024 What Is Your Relationship Status? Single MIGRATION.570482 1819 Information not available 07/27/2022 Do You Use Your Seat Belt Or Car Seat Routinely? Yes MIGRATION.300356 5542 Information not available 07/27/2022 Do You Have Smoke And Carbon Monoxide Detectors In Your Home? Yes MIGRATION.989852 0639 Information not available 07/27/2022 At What Age Did You Start Smoking Tobacco? 18 MIGRATION.230072 4637 Information not available 07/27/2022 Are There Any Smokers In Your House? Yes [email or web address] Information not available 06/05/2024 How Much Tobacco Do You Smoke? 1 PPD MIGRATION.858594 7542 Information not available 07/27/2022 Do You Use Sunscreen Routinely? No [email or web address] Information not available 06/05/2024 How Many Years Have You Smoked Tobacco? 28 MIGRATION.298332 4598 Information not available 07/27/2022 Have You Recently Traveled Abroad? No [email or web address] Information not available 06/05/2024 Do You Have Any Dietary Restrictions? No [email or web address] Information not available 06/05/2024 How Many Days In The Past Year Have You Consumed 4 Or More Drinks? 0 [email or web address] Information no t available 06/05/2024 Sex: Female Functional Status Question Answer Note LastModified by Organizat ion Details LastModified Time Do you use any illicit or recreational drugs? No [email or web address] Information not available 06/05/2024 Do you or have you ever used any other forms of tobacco or nicotine? No [email or web address] Information not available 06/05/2024 What is your level of alcohol consumption? Occasional [email or web address] Information not available 06/05/2024 Do you or have you ever used smokeless tobacco? Never used smokeless tobacco MIGRATION.073971 0560 Information not available 07/27/2022 Are you currently employed? No [email or web address] Information not available 06/05/2024 Do you or have you ever used e-cigarettes or vape? Never used electronic cigarettes MIGRATION.957059 6656 Information not available 07/27/2022 What is your exercise level? None [email or web address] Information not available 06/05/2024 Mental Status Question Answer Note LastModified by Organization D etails LastModified Time Do you feel stressed (tense, restless, nervous, or anxious, or unable to sleep at night)? [id number] [email or web address] Information not available 06/05/2024 Family History Relationship Description Onset Age of this Age Resolved Age Notes LastModified by Organization Details LastModified Time Father Essential hypertension [email or web address] Not available 06/16/2023 09:58:52 Father Chronic obstructive pulmonary disease [email or web address] Not available 03/29 09:58:52 Father Congestive heart failure [email or web address] Not available 03/29 09:58:52 Father Malignant lymphoma [email or web address] Not available 03/29 09:58:52 Father Sinusitis Not availabl e 04/16/2024 10:07:46 Father Diabetes mellitus [id number] Not available 07/27/2022 14:45:38 Mother Essential hypertension [email or web address] Not available 1 06/16/2023 09:58:52 Mother Tremor [email or web address] Not availabl e 04/16/2024 09:58:52 Medical History Condition Response DEPRESSION (INCLUDING POST ) Y URINARY/BLADDER/KIDNEY PROBLEMS Y ANXIETY DISORDER Y Gynecological History Statement/Question Response Menses Monthly N Date of Last Mammogram 07/03/2020 Current Control Method Tubal Ligat ion Date of LMP 10/27/2020 Obstetrics History GPAL:G 0 P 0 0 0 0 Past Encounters Encounter ID Performer Location Encounter Start Date Encounter Closed Date Diagnosis/Indication Diagnosis SNOMED-CT Code Diagnosis ICD10 Code Diagnosis Note [id number] Leanne Anderson MD S[facility] Internal Med [address] [address] 10/01/2020 00:00:00 10/01/2020 15:41:10 [id number] Leanne Anderson MD S_[facility] Internal Med [address] [address] 11/06/2020 00:00:00 11/06/2020 13:17:18 [id number] Leanne Anderson MD S_[facility] Internal Med [address] [address] 11/27/2020 00:00:00 11/27/2020 10:02:11 [id number] Leanne Anderson MD [facility] [address] [address] 01/13/2021 00:00:00 01/13/2021 11:22:48 [id number] MD [facility]HA[facility] Internal [facility] [address] [address] 03/29/2021 00:00:00 03/29/2021 17:23:27 [id number] Leanne Anderson MD S[facility] [address] [facility] [place] [address] 03/29/2021 00:00:00 03/29/2021 17:24:13 [id number] Leanne Anderson MD [facility] [address] [facility] [place] [address] 07/13/2021 00:00:00 07/13/2021 10:50:28 [id number] MD LASHAWN [facility] [address] [facility] [place] [address] 08/09/2021 00:00:00 08/09/2021 12:53:14 [id number] MD [facility] [address] [place] [address] [place] [address] 12/06/2021 00:00:00 12/06/2021 16:07:55 [id number] MD [facility]ASHAWN [facility] [address] [place] [address]. [place] [address] 01/21/2022 00:00:00 01/21/2022 09:58:15 [id number] MD GARCÍA [facility] [address] [place] [address]. [place] [address] 05/02/2022 00:00:00 05/02/2022 16:57:18 [id number] Leanne Anderson MD S[facility] [address] [facility] [facility] [place] [address] 12/01/2022 14:29:41 12/01/2022 15:04:27 Chest pain 07052304 R07.9 atypical, already had EKG, will get the report, get cxr , ( smoker )call in 2-3 w eeks if not better [id number] Leanne Anderson MD [facility] [address] [facility] [place] [address] 02/13/2023 10:15:06 02/13/2023 11:05:19 Benign paroxysmal positional vertigo 906298437 H81.10 [id number] Leanne Anderson MD [facility] Internal [facility] [address] [facility] [place] [address] 10/30/2023 10:58:25 10/30/2023 11:51:34 Obesity 399013994 E66.9 advise dto lose, watch diet Smoker 81871239 F17.200 advised to quit Hyperlipidemia 15878418 E78.5 need to watch diet Hypothyroidism 68394401 E03.9 on meds Adult heal th examination 455976357 Z00.00 Colonoscop y- NEVERMammo gram- 06/2020 - OrderedFLU - NEVERCOVID - Has had only 2 Screening mammography 24 200108 Z12.31 [id number] Leanne Anderson MD [facility] Internal [facility] [address] [facility] [place] [address] 01/26/2024 14:22:59 01/26/2024 14:58:10 Sebaceous cyst of skin 379037414 L72.3 discussed continue normal skin care, if cyst opens and drains before getting to dermatolog y call us back, otherwise see derm. [id number] Leanne Anderson MD [facility] Internal [facility] [address] [facility] [place] [address] 04/11/2024 11:39:05 04/11/2024 12:14:34 Impacted cerumen of bilateral ears 7309527516 262667 H61.23 cleaned , irrigated, TM and ear canals clear [id number] Francis Polanco MD [facility] [place] [address] [place] [address] 04/16/2024 09:57:17 04/16/2024 10:28:54 Dysfunction of left eustachian tube 1652708653 327570 H69.92 audiogram and tympanogra m ordered [id number] Francis Polanco MD [facility] [place] [address] [place] [address] 05/02/2024 11:41:02 05/23/2024 10:18:37 Dysfunction of left eustachian tube 7934881282 530914 H69.92 Hypothyroidism 72216432 E03.9 [id number] Leanne Anderson MD [facility] Internal Med [facility] [address] [facility] [place] [address] 06/05/2024 11:33:49 06/05/2024 12:34:44 Obesity 275875281 E66.9 advised to lose, watch diet Smoker 09165862 F17.200 advised to quit, not willing Hyperlipidemia 54966086 E78.5 labs Hypothyroidism 38102478 E03.9 on meds Adult heal th examination 700105787 Z00.00 Colonoscop y- NEVERMammo gram- 06/2020 - has been ordered many times, willingFLU - NEVERCOVID - Has had only 2 Screening mammography 24 978505 Z12.31 Numbness of toe 52563231 8 R20.0 mild off and on symptoms, watchto quit smoking Screening for disorder 921162953 Z13.9 [id number] Francis Polanco MD [facility] [place] [address] [place] [address] 10/17/2024 14:28:58 10/18/2024 08:54:22 Dizziness 595800462 R42 Benign par oxysmal positional vertigo 279128223 H81.12 [id number] Leanne Anderson MD [facility] Internal [facility] [address] [place] [address] 11/28/2024 10:06:43 11/28/2024 11:15:52 Obesity 085447672 E66.9 advised to lose, watch diet Smoker 55582894 F17.200 advised to quit, Hyperlipidemia 53238139 E78.5 labs done Hypothyroidism 88196823 E03.9 on meds Adult heal th examination 141286363 Z00.00 Colonoscop y- NEVERMammo gram- 06/2020 - has been ordered many times, willingFLU - NEVERCOVID - Has had only 2 Screening mammography 24 959345 Z12.31 states scheduled in february Pain in both feet 694619 9833 [id number] M79.671 M79.672 try meloxicam Health Concerns Section Related Observation LastModified by Organization Detai ls LastModified Time None Recorded Concern Status LastModified by Organization Details LastModified Time None Recorded Advance Directives Directive N: Payers Insurance Date Sequence Insurance Name Policy Number Policy Cheng Covered Member ID Cheng Member ID Guarantor Name 11/27/2024 1 [facility] - DUAL OPT[employer] (MEDICARE - MEDICAID REPLACEMENT HMO) [id number] Fidencio Jones Milad [id number] Janie Robert Stinson 10/17/2024 [facility] (MEDICAID HMO) [id number] Fidencio Jones Milad [id number] Janie Stinson Notes Date Note Type Note Provider Name and Address Organization Details Recorded Time 04/16/2024 text/html This patient has a past medical history significant for hypothyroidism, hyperlipidemia, depression, osteoarthritis, and dizziness who presents to the office with a complaint left otalgia and muffled hearing onset approximately 3.5 weeks ago. She had presented to an [facility] and received a 10 day course of amoxicillin on 04/01/2024 without resolution of symptoms. She had seen her PCP last week and had cerumen removed from the affected ear without resolution of symptoms. NASREEN Nieves [address], [place], [address], [employer] 04/16/2024 10:28:27 05/02/2024 text/html this patient has been treated for left otitis media with antibiotics and steroids. She reports that there has been improvement. In addition she has been on Synthroid and is wondering about her current thyroid hormone levels and possible nodules. Francis Polanco MD [address], [place], [address], [employer] 05/02/2024 12:25:42 06/05/2024 text/html Pt is here today for numbness of two toes on her left foot.Has been going on for about 2 months. No known injuryAlso C/o back pain- More on the right lower back, Started yesterday. PT IS FASTING ( [place] ) Hypothyroidism- On meds, TSH dueMeds- Levothyroxine 150mcg Hyperlipidemia- mild , watching diet Obesity- Has gained 3 lbs Smoker- Smokes about 1 pk/day, smoking since teenage years Leanne Anderson MD [address], [place], [address], [employer] 06/05/2024 16:58:53 10/17/2024 text/html this patient reports dizziness when she rolls over in bed at night. She was given meclizine by the ER. She reports that her hearing is pretty good. Francis Polanco MD [address], [place], [address], [employer] 10/17/2024 14:55:14 11/28/2024 text/html pt is here for bilateral foot pain onset 1month , tight/pressure on top of arch of foot. makes it hard to walk.no injurySlowly getting worseno injury* did abs this morning* PT IS NOT FASTING ( [place] ) Hypothyroidism- On meds, TSH dueMeds- Levothyroxine 150mcg Hyperlipidemia- mild , need to be watching diet Obesity- Has gained some weight, diet not under control Smoker- Smokes about 1 pk/day, smoking since teenage years Pt is here today for numbness of two toes on her left foot.Has been going on for about 2 months. No known injuryAlso C/o back pain- More on the right lower back, Started yesterday. PT IS FASTING ( [place] ) Hypothyroidism- On meds, TSH dueMeds- Levothyroxine 150mcg Hyperlipidemia- mild , watching diet Obesity- Has gained 3 lbs Smoker- Smokes about 1 pk/day, smoking since teenage years Leanne Anderson MD [address], [place], [address], [employer] 11/28/2024 10:43:36 OBGyn Episode No OBEpisode recorded.
--- OUTSIDE RECORDS SUMMARY | 2024-11-28 11:16 | XMS_ITS | Clinical Summary ---
Author Organization [facility] Address [facility] [place] [address] Care Team Providers Care Mandrel Press Hand Name Role Phone Gerald Marvin MD Primary Care Provider [phone] Allergies Active Allergy Reactions Criticality Noted Date [...] 1:18 AM CDT Height 157.5 cm (5' 2) 10/13/2021 1:18 AM CDT Body Mass Index [...] 6:06 AM 10/14/2021 1:45 PM Care Teams Mandrel Press Hand Relationship Specialty Start Date End Date Gerald Marvin MD PCP - General INTERNAL MEDICINE 05/29/21
== END 2024-11-28 11:11 | disposition home or self-care (01) ==
PROVIDERS: PCP Internal Medicine; Visit Provider Internal Medicine
DX: M79.672 Pain in left foot (principal); M79.671 Pain in right foot
CPT/HCPCS: 73630

== ENCOUNTER 2025-03-21 09:51 | Outpatient (CLI) | payer OTHER, SELFPAY ==
--- NOTE | ~2025-03-21 | MM_ITS ---
EXAMINATION: MM screening [facility] BI [facility] HISTORY: Screening TECHNIQUE: Craniocaudal and mediolateral oblique 3-D tomosynthesis images were obtained and synthetic 2-D images were generated. CAD analysis was submitted and interpreted. COMPARISON: Comparison to multiple prior studies sequentially, with oldest reviewed study dated 03/06/2020. BREAST PARENCHYMAL COMPOSITION: Not dense: There are scattered areas of fibroglandular density. FINDINGS: There is no evidence of suspicious mass, calcification, or architectural distortion to suggest malignancy in either breast. There has been no suspicious interval change. IMPRESSION: 1. No mammographic evidence of malignancy. 2. Recommend routine screening mammography in one year. BI-RADS Category 1: Negative Reviewed, dictated and finalized at location O.
--- OUTSIDE RECORDS SUMMARY | 2025-03-21 10:08 | XMS_ITS | Clinical Summary ---
Author Organization [facility] Address [address] [place] [address] Care Team Providers Care Luggage Liner Name Role Phone Unavailable Primary Care Provider Unavailabl e Source Comments [facility],non-owned Affiliates and Associated Physician Practices is amultiple site organization consisting of ambulatory clinics and hospital sitesin [place], [place], [place] and [place]. This disclosure is being madepursuant to the Care Everywhere program and may not contain all information available regarding this patient. Last updated 18.[facility] [place] Allergies No known active allergies Medications * Be aware that medications may not be up to date on this document. Alwaysverify current medications with the patient. ALPRAZolam (XANAX) 0.5 MG tablet Take 0.5 mg by mouth. Active levothyroxine (SYNTHROID) 100 MCG tablet Take 100 mcg by mouth daily before breakfast. Active Encounters Date Type Department Care Team Description 03/21/2025 1:00 PM CDT Hospital Encounter [facility] [address] [place] [address] 03/07/2025 8:33 AM CDT - 03/07/2025 11:59 PM T Hospital Encounter [facility] [address] [place] [address] Francis Polanco MD Discharge Disposition: Home or Self Care from Last 3 Months Social History Tobacco Use Types Packs/Day Years Used Date Smoking Tobacco: Every Day Cigarettes Alcohol Use Standard Drinks/Week Comments Yes 0 (1 standard drink = 0.6 oz pur e alcohol) Comments Unknown Sex and Gender Information Value Date Recorded Sex Assigned at Not on file Legal Sex Female 6:17 AM ARABIC LINGUIST Gender Identity Not on file Sexual Orientation Not on file Last Filed Vital Signs Vital Sign Reading Time Taken Comments Blood Pressure 96/58 05/11/2011 1:58 PM ARABIC LINGUIST Pulse 74 05/11/2011 1:58 PM ARABIC LINGUIST Temperature 36 C (96.8 F) 05/11/2011 12:52 PM ARABIC LINGUIST Respiratory Rate 16 05/11/2011 1:58 PM ARABIC LINGUIST Oxygen Saturation 97% 05/11/2011 1:58 PM ARABIC LINGUIST Inhaled Oxygen Concentration - - Weight 77.1 kg (170 lb) 05/11/2011 12:52 PM ARABIC LINGUIST Height - - Body Mass Index - - Plan of Treatment Upcoming Encounters Date Type Department Care Team (Late st Contact Info) Description 03/21/2025 1:00 PM CDT Hospital Encounter [address] [address] Health Maintenance Due Date Last Done Comments COLON MONITORING 1975 COLONOSCOPY - COLON CA SCREENING 1975 CT COLONOGRAPHY - COLON CA SCREENING 1975 FIT - COLON CA SCREENING 1975 FLEX SIG - COLON CA SCREENING 1975 LIPID TESTING 1975 MAMMOGRAM 1975 HIV SCREENING 1990 HEPATITIS C SCREENING 05/27/1993 DTAP/TDAP/TD VACCINES (1 - Tdap) 1994 HEPATITIS B VACCINE (1 of 3 - 19+ 3-dose series) 1994 PAP SMEAR 1996 DEPRESSION SCREENING 05/29/2024 MEDICARE AWV CALENDAR YEAR 2024 COVID-19 VACCINE ( - 2023-2 5 season) 2025 INFLUENZA VACCINE (#1) 2025 ZOSTER VACCINE (1 of 2) 2025 COLOGUARD (AGES 45-75) - COL ON CA SCREENING 01/22/2028 01/21/2025 Colorectal Cancer Screening 01/22/2028 HIB VACCINE Aged Out No longer eligi [...] OUT OF STATE [place] [facility]
--- OUTSIDE RECORDS SUMMARY | 2025-03-21 10:08 | XMS_ITS | Clinical Summary ---
Author Organization [facility] Care Team Providers Care Engineer Internship Name Role Phone Unavailable Primary Care Provider [...] Cervical Cancer Screening (CCS) 2005 HPV/Cotest 2005 Cologuard 2020 Colonoscopy 2020 Colorectal Cancer Screening 2020 Immunochemical Fecal Occult Blood 2020 Influenza Immunization (#1) 2025 SARS-COV-2 Immunization ( season) 2025 Respiratory Syncytial Virus (RSV) Immunization (Adult) (1 - 1-dose 75+ series) 2050 Human Papillomavirus (HPV) Immunization Aged Out No longer eligible b ased on patient's age to complete this topic Meningococcal Immunization (ACWY) Aged Out No longer eligible based on patient's age to complete this topic Pneumococcal Immunization Combined Aged Out No longer eligible based on patient's age to complete this topic Rotavirus Immunization Aged Out No lo nger eligible based on patient's age to complete this topic
--- OUTSIDE RECORDS SUMMARY | 2025-03-21 13:00 | XMS_ITS | Encounter Summary ---
Author Organization [facility] Address [address] [facility] [place] [address] Care Team Providers Care Senior Product Development Engineer Name Role Phone Unavailable Primary Care Provider Unavailabl e Encounter Details Date Type Department Care Team (Late st Contact Info) Description 03/21/2025 1:00 PM CDT Hospital Encounter [address] [address] Social History Tobacco Use Types Packs/Day Years Used Date Smoking Tobacco: Every Day Cigarettes Alcohol Use Standard Drinks/Week Comments Yes 0 (1 standard drink = 0.6 oz pur e alcohol) Comments Unknown Sex and Gender Information Value Date Recorded Sex Assigned at Not on file Legal Sex Female 6:17 AM WARM IN Gender Identity Not on file Sexual Orientation Not on file documented as of this encounter Plan of Treatment Not on file documented as of this encounter Visit Diagnoses Not on filedocumented in this encounter
== END 2025-03-21 09:52 | disposition home or self-care (01) ==
LOC: ANHFOHIMG 09:52
PROVIDERS: PCP Internal Medicine; Visit Provider Internal Medicine
DX: Z12.31 Encounter for screening mammogram for malignant neoplasm of breast (principal)
CPT/HCPCS: 77063; 77067